=== PATIENT | female | born 1955 | race Two or more races ===

== ENCOUNTER 2025-02-11 05:45 | Inpatient (IN) | payer SELFPAY ==
[2025-02-11] VITALS (8 sets, daily range): BP systolic 106–137; BP diastolic 57–84; PULSE 62–115; RESP 13–17; TEMP 36.4–37.8; O2SAT 94–98; BMI 24.0; BMI 24.7
--- NOTE | 2025-02-11 | XR_ITS ---
MRI abdomen, without contrast. MRCP Date and time of exam: February 11 2025, 1621 hours Indications: Nausea and vomiting beginning 2 days ago, cholelithiasis, thickened gallbladder wall mildly enlarged common bile duct on gallbladder sonogram today Technique: Multiple axial and coronal images of the abdomen have been obtained with the Siemens 1.5T MRI scanner. Images obtained included T1 weighted transverse images, T2-weighted transverse images, T2-weighted transverse images fat-suppressed, T2 weighted haste fat suppressed transverse images, T1 weighted images, in and out of phase images, T2-weighted coronal images, breath hold, T2 weighted haze coronal images as well as T2 weighted coronal thick slab images, MRCP. Findings: No focal liver lesions Gallstones There is significant edema surrounding the gallbladder Common hepatic common bile duct is enlarged, 7 mm Small stones in the 2 mm range versus sludge in the common bile duct for instance coronal image 14 No splenomegaly The pancreas is not enlarged No hydronephrosis IMPRESSION: Acute calculus cholecystitis Enlarged common hepatic common bile duct with sludge versus small stones in the common bile duct, consider ERCP follow-up
--- NOTE | 2025-02-11 06:09 | EKG_ITS ---
[facility] Test Date: 2025-02-11 Pat Name: VAZQUEZ LING Department: Room: - Gender: Female [employer] Maker: : 1955 Requested By: Omkar Grewal Order Number: [id number] Reading MD: Omkar Grewal Measurements Intervals [place] Rate: 69 P: FL: QRS: 69 QRSD: 88 T: 58 QT: 397 QTc: 426 Interpretive Statements ATRIAL FIBRILLATION POSSIBLE RIGHT VENTRICULAR CONDUCTION DELAY [RSR (QR) IN V1/V2] MODERATE ST DEPRESSION [0.05+ mV ST DEPRESSION] No previous ECG available for comparison /[id number].pdf
--- NOTE | 2025-02-11 06:10 | PD.EDRME ---
Rapid Medical Screening Exam RME Arrival date/time: 02/11/25 05:45 This is a case of 69 year old female came in with abdominal pain with nausea vomiting for 2 days patient states also that her blood sugar and blood pressure is elevated. Chief Complaint: Nausea/Vomiting/Diarrhea
[2025-02-11 07:30] LABS: Base Excess, Venous 1 (-3-3); O2 Saturation, Venous 57 % (96-97); PCO2, Venous 28 mmHg (36-56); PO2, Venous 26 mmHg (15-58); pH, Venous 7.52 (7.33-7.66)
[2025-02-11 07:33] LABS: Basophils # (Auto) 0.0 Thou/mm3 (0.0-0.2); Basophils % (Auto) 0 % (0-2.5); Eosinophils # (Auto) 0.0 Thou/mm3 (0.0-0.5); Eosinophils % (Auto) 0 % (0-10); Hematocrit 40.0 % (36.0-46.0); Hemoglobin 13.7 g/dL (12.0-16.0); Immature Granulocytes Auto 0.05 Thou/mm3 (0.00-0.00); Lymphocytes # (Auto) 1.5 Thou/mm3 (1.0-4.8); Lymphocytes % (Auto) 12 % (10-50); Mean Corpuscular HGB Conc 34.3 g/dl (31.0-37.0); Mean Corpuscular Hemoglobin 27.3 pg (25.0-35.0); Mean Corpuscular Volume 80 fL (80-100); Monocytes # (Auto) 0.8 Thou/mm3 (0.0-0.8); Monocytes % (Auto) 6 % (0-12); Neutrophils # (Auto) 10.4 Thou/mm3 (1.8-7.7); Neutrophils % (Auto) 81 % (37-80); Nucleated Red Blood Cell # 0.00 Thou/mm3 (0.00-0.00); Nucleated Red Blood Cell % 0 /100 WBC (0); Platelet Count 161 Thou/mm3 (140-440); RDW Standard Deviation 39.7 fL (36.4-46.3); Red Blood Count 5.02 Miln/mm3 (4.00-5.20); White Blood Count 12.8 Thou/mm3 (3.6-11.0)
[2025-02-11 07:36] LABS: Beta Hydroxybutyrate 0.1 mmol/L (<0.6)
--- NOTE | 2025-02-11 07:49 | EDNOTE_ITS ---
ED Abdominal Pain RME/HPI General Chief Complaint: Nausea/Vomiting/Diarrhea Stated complaint: NAUSEA VOMITING DIARREHA BACK PAIN Time seen by provider: 02/11/25 07:41 Arrival date/time: 02/11/25 05:45 Limitations: no limitations RME / HPI RME / HPI narrative: 02/11/25 05:45 This is a case of 69 year old female came in with abdominal pain with nausea vomiting for 2 days patient states also that her blood sugar and blood pressure is elevated. DR. HOUSER MAIN ED EVALUATION: 69 year old female with history of hypertension and diabetes presents to the ED for evaluation of abdominal pain beginning yesterday. Described as aching in sensation that is located most to the epigastric and right upper quadrant regions that radiates around to her back. Rating 9/10 in severity. Accompanied by nausea, vomiting, and soft stools. She describes her emesis to be green in color and occurring a total of 10 times since onset. Denies fevers, chills, chest pain, cough, watery stools, or urinary symptoms. Related Data Home Medications ?Medication ?Instructions ?Recorded ?Confirmed losartan 25 mg tablet 25 mg PO QDAY 02/11/2502/11 metformin 500 mg tablet 500 mg PO QDAY 02/11/2503/31 Previous Rx's ?Medication ?Instructions ?Recorded ciprofloxacin HCl 500 mg tablet 500 mg PO BID #14 tabs 02/14/25 (Cipro) hydrocodone 5 mg-acetaminophen 325 1 tab PO Q6HR PRN PAIN 4-6 #10 02/14/25 mg tablet tabs pantoprazole 40 mg tablet,delayed 40 mg PO BID 90 days #180 tabs 02/14/25 release (Protonix) Allergies Allergy/AdvReac Type Severity Reaction Status Date / Time metronidazole Allergy Mild Rash Verified 02/12/25 07:17 aspirin (From [facility]) Allergy Verified 02/11/25 05:52 citric acid (From Allergy Verified 02/11/25 05:52 [facility]) Penicillins Allergy Verified 02/11/25 05:52 sodium bicarbonate (From Allergy Verified 02/11/25 05:52 [facility]) Review of Systems Review of Systems Systems Reviewed: All systems reviewed, normal except as documented Past Medical History Social History SMOKING STATUS: Never smoker ED Exam General Limitations: Present no limitations General appearance: Present alert and in no apparent distress Head Head exam: Present atraumatic, normocephalic and normal inspection Eye Eye exam: Present normal appearance, PERRL and EOMI ENT ENT exam: Present normal exam, normal oropharynx and mucous membranes moist Neck Neck exam: Present normal inspection, full ROM and trachea midline Chest Chest inspection: Present normal inspection and symmetric chest wall rise Respiratory Respiratory exam: Present normal lung sounds bilaterally Cardiovascular Cardiovascular exam: Present regular rate, normal rhythm and normal heart sounds Abdominal Exam Abdominal exam: Present soft and normal bowel sounds; Absent distention, te nderness, guarding or rebound Extremities Exam Extremities exam: Present normal inspection and full ROM Back Exam Back exam: Present normal inspection and full ROM Neurological Exam Neurological exam: Present alert, oriented X3 and CN II-XII intact Psychiatric Psychiatric exam: Present normal affect and normal mood Skin Skin exam: Present warm, dry, intact and normal color Course Quality Measures none Orders Category Date Time Status COVID-19 Screening Questionnaire NOW Care 02/11/25 19:12 Completed Decision to Admit X1 Care 02/11/25 19:12 Completed EKG (ED ONLY) *Do not use* NOW Care 02/11/25 06:10 Completed MRI Screening NOW Care 02/11/25 13:03 Completed NPO NOW Care 02/11/25 18:02 Completed NPO after Midnight ONCE Care 02/11/25 19:12 Completed Consult to Gastroenterology Stat Cons 02/11/25 18:33 Ordered Diet NPO after Midnight Diet 02/12/25 00:[address] abdomen pelvis wo con Stat Exams 02/11/25 08:05 Completed EKG (ED Only) Stat Exams 02/11/25 06:09 Draft MR MRCP Stat Exams 02/11/25 Completed US gall bladder Stat Exams 02/11/25 09:55 Completed Beta Hydroxybutyrate Stat Lab 02/11/25 07:19 Completed Blood Culture (Lab) Stat Lab 02/11/25 13:24 Results CBC Stat Lab 02/11/25 07:19 Completed Comprehensive Metabolic Panel Stat Lab 02/11/25 07:19 Completed Lipase Stat Lab 02/11/25 07:19 Completed Troponin I Stat Lab 02/11/25 07:19 Completed Urinalysis Stat Lab 02/11/25 09:06 Completed Venous Blood Gas Stat Lab 02/11/25 07:19 Completed Famotidine Inj [Pepcid Inj] Med 02/11/25 08:05 Discontinued 20 mg IVP X1 ONE Levofloxacin/D5w 500 mg Ivpb [Levaquin Ivpb] Med 02/11/25 13:04 Discontinued 500 mg in 100 ml IV X1 Mannitol Inj 25% Med 02/11/25 18:01 Discontinued 50 gm IV X1 ONE Morphine Inj Med 02/11/25 08:04 Discontinued 2 mg IVP X1 ONE Morphine Inj Med 02/11/25 12:59 Discontinued 4 mg IVP X1 ONE Nicardipine/Ns 20Mg Ivpb [Cardene Ivpb] Med 02/11/25 18:01 Discontinued 20 mg in 200 ml IV 5 mg/hr Ondansetron Inj [Zofran Inj] Med 02/11/25 19:30 Discontinued 4 mg .ROUTE .STK-MED ONE Ondansetron Inj [Zofran Inj] Med 02/11/25 12:59 Discontinued 4 mg IVP X1 ONE Ondansetron Inj [Zofran Inj] Med 02/11/25 19:38 Discontinued 4 mg IVP X1 ONE Ondansetron Odt [Zofran Odt] Med 02/11/25 06:39 Discontinued 4 mg PO X1 ONE Potassium Chloride [K-Dur] Med 02/11/25 09:03 Discontinued 20 meq PO X1 ONE Sodium Chloride 0.9% 1000 ml [Ns] 1,000 ml Med 02/11/25 08:04 Discontinued IV 999 mls/hr Vital Signs Vital signs: Vital Signs Temperature 98.5 F 02/11/25 07:15 Pulse Rate 115 H 02/11/25 07:15 Respiratory Rate 17 02/11/25 07:15 Blood Pressure 112/72 02/11/25 07:15 Pulse Oximetry (%) 97 02/11/25 07:15 Oxygen Delivery Method Room Air 02/11/25 07:15 Pulse ox is 97% on room air which is adequate. Abdominal Pain MDM MDM Narrative MDM Narrative:: Wilda Edwards am scribing for and in the presence of Dr. Houser. 1800: Patient signed out to Dr. Whitley pending MRCP and final disposition. Patient data External records reviewed:: None (No previous ED visits for review ) Clinical information provided by:: patient Social determinants that could affect healthcare access:: none Patient has the following chronic illnesses:: HTN and DM How is presenting disease/condition affected by chronic disease/condition?: uneffected by Evaluation data The following diagnostics were reviewed and interpreted by me:: lab results, radiology exam(s) and EKG tracing(s) (02/11/2025 @ 06:34 AM. Atrial fibrillation, rate 69, nonspecific ST and T-wave changes. ) Lab and/or radiology exams considered but not ordered:: None Interpretation Summary: Ordering Physician: Sang Houser MD Date of Service: 02/11/25 Procedure(s): CT abdomen pelvis wo con Accession Number(s): [id number] cc: Sang Houser MD; Yan Bynum MD; NO PRIMARY/FAMILY,PHYSICIAN~ Examination: CT abdomen and pelvis without contrast. Coronal 3-D reconstructions. Sagittal 2-D reconstructions. Date and time of exam:February 11, 2025 0821 hours INDICATIONS: Generalized abdominal pain with nausea vomiting diarrhea today CTDI: vol (mGy): 5.47 DLP: (mGycm): 272 Technique: Axial images of the abdomen have been obtained, 3 mm slice thickness Intravenous contrast material has not been administered. Low dose protocols were performed. One or more of the following dose reduction techniques were used; automated exposure control, adjustment of the mA and/or KV according to patient size, use of iterative reconstruction technique. Findings: Fatty infiltration throughout the liver. No focal liver or splenic lesions. Gallbladder is abnormal, wall thickening and pericholecystic inflammatory change No pancreatic mass No renal or ureteral calculi, no hydronephrosis Aorta normal size. No bowel obstruction Normal appendix No diverticulitis Abnormal thickening of urinary bladder wall up to 4 mm Absent uterus Severe osteopenia IMPRESSION: Recommend hepatobiliary sonography follow-up to confirm acute acalculous cholecystitis Urinary bladder wall thickening, differential would include cystitis Dictated By: Yan Bynum MD Signed By: <Electronically signed by Yan Bynum MD in OV> 02/11/25 09 Ordering Physician: Sang Houser MD Date of Service: 02/11/25 Procedure(s): US gall bladder Accession Number(s): [id number] cc: Sang Houser MD; Yan Bynum MD; NO PRIMARY/FAMILY,PHYSICIAN~ Examination: Abdomen sonogram, Limited Date and time of exam: February 11, 2025 1137 hours INDICATIONS: Abdominal and back pain nausea vomiting diarrhea beginning 2 days ago Technique: Real-time calderon scale transabdominal sonographic images of the upper abdomen obtained. Findings: Small gallstones Gallbladder wall is thickened 0.8 cm and there does appear to be trace edema Common bile duct 0.6 cm Pancreatic head 3.0 cm Liver 14.5 cm smooth contour Normal hepatopedal portal venous flow Patent IVC IMPRESSION: Findings most consistent with acute calculus cholecystitis, consider MRCP follow-up Dictated By: Yan Bynum MD Signed By: <Electronically signed by Yan Bynum MD in OV> 02/11/25 1201 Medications / Prescriptions Medications or Prescriptions considered but not ordered:: None Medication administrations:: Medication Administration History Acetaminophen (Acetaminophen 325 Mg Tablet) 650 mg PO Q6H PRN PRN Reason: Pain 1-3 and/or Fever >100.1 Stop: 03/13/25 19:45 Hydrocodone Bitart/Acetaminophen (Hydrocodone/Apap 5/325 Tablet) 1 tab PO Q6HR PRN PRN Reason: PAIN 4-6 Stop: 02/18/25 15:01 Last Admin: 02/14/25 06:06 Dose: 1 tab Documented By: JASON Albuterol/Ipratropium (Albuterol/Ipratropium (Duoneb) Rt Vi 3 Ml Nebu) 3 ml INH Q4HRRT PRN PRN Reason: WHEEZING Stop: 03/15/25 12:01 Dextrose (Dextrose 50%-Water Inj 50 Ml Syringe) 25 ml IV Q15MIN PRN PRN Reason: BG 50-70 responsive npo pt Stop: 03/13/25 19:53 Dextrose (Dextrose 50%-Water Inj 50 Ml Syringe) 50 ml IV Q15MIN PRN PRN Reason: BG <50 OR BG <70 & pt unresponsive Stop: 03/13/25 19:53 Docusate Sodium (Docusate Sod 100 Mg Capsule) 100 mg PO BID NADIYA; Protocol Stop: 03/15/25 20:59 Last Admin: 02/14/25 09:52 Dose: 100 mg Documented By: Admin: 02/14/25 07:28 Dose: Not Given Documented By: Non-Admin Reason: Patient Refused Admin: 02/13/25 21:56 Dose: 100 mg Documented By: JASON Glucagon (Glucagon Inj 1 Mg Vial) 1 mg IM Q15MIN PRN PRN Reason: BG <70, and no IV access Piperacillin/Tazobactam/Dextrose (Zosyn) 3.375 gm in 50 mls @ 12.5 mls/hr IV Q8HR NADIYA Stop: 02/19/25 21:59 Last Admin: 02/15/25 06:26 Dose: 12.5 mls/hr Documented By: Infusion: 02/15/25 03:47 Dose: Infused Documented By: Admin: 02/14/25 23:47 Dose: 12.5 mls/hr Documented By: Infusion: 02/14/25 17:07 Dose: Infused Documented By: Admin: 02/14/25 13:07 Dose: 12.5 mls/hr Documented By: Infusion: 02/14/25 09:21 Dose: Infused Documented By: Admin: 02/14/25 05:21 Dose: 12.5 mls/hr Documented By: Infusion: 02/14/25 01:57 Dose: Infused Documented By: Admin: 02/13/25 21:57 Dose: 12.5 mls/hr Documented By: Infusion: 02/13/25 19:11 Dose: Infused Documented By: Admin: 02/13/25 15:11 Dose: 12.5 mls/hr Documented By: Infusion: 02/13/25 09:37 Dose: Infused Documented By: Admin: 02/13/25 05:37 Dose: 12.5 mls/hr Documented By: Infusion: 02/13/25 04:02 Dose: Infused Documented By: Admin: 02/13/25 00:02 Dose: 12.5 mls/hr Documented By: LYNN Lactated Ringer's (Lactated Ringers) 1,000 mls @ 75 mls/hr IV .[id number] [facility] Stop: 03/15/25 10:42 Last Admin: 02/14/25 23:48 Dose: 75 mls/hr Documented By: Infusion: 02/14/25 18:41 Dose: Infused Documented By: Admin: 02/14/25 05:21 Dose: 75 mls/hr Documented By: Infusion: 02/14/25 04:30 Dose: Infused Documented By: Admin: 02/13/25 15:10 Dose: 75 mls/hr Documented By: JCARLOS Insulin Human Lispro (Insulin Lispro (Admelog) 1 Unit/0.01 Ml Unit) 0 unit SC [facility]; Protocol Stop: 03/15/25 16:59 Last Admin: 02/14/25 20:20 Dose: Not Given Documented By: FINESSE Non-Admin Reason: Per Protocol Admin: 02/14/25 11:42 Dose: Not Given Documented By: Non-Admin Reason: Per Protocol Admin: 02/14/25 07:25 Dose: Not Given Documented By: Non-Admin Reason: Per Protocol Admin: 02/13/25 21:57 Dose: 1 unit Documented By: JASON Co-signed By: SHANON Admin: 02/13/25 17:04 Dose: Not Given Documented By: [email or web address] Non-Admin Reason: Per Protocol Morphine Sulfate (Morphine Sulf Inj 10 Mg/Ml Vial) 2 mg IVP Q4H PRN PRN Reason: PAIN SCALE 7-10 (Severe Stop: 02/16/25 19:45 Ondansetron HCl (Ondansetron Inj 2 Mg/Ml Inj 2 Ml) 4 mg IVP Q6H PRN; Protocol PRN Reason: NAUSEA OR VOMITING Stop: 03/13/25 19:45 Last Admin: 02/12/25 20:30 Dose: 4 mg Documented By: LYNN Pantoprazole Sodium (Pantoprazole Inj 40 Mg Vial) 40 mg IVP BID [facility] Stop: 03/15/25 08:59 Last Admin: 02/14/25 23:48 Dose: 40 mg Documented By: Admin: 02/14/25 09:48 Dose: 40 mg Documented By: Admin: 02/13/25 21:57 Dose: 40 mg Documented By: Admin: 02/13/25 09:24 Dose: 40 mg Documented By: JARON Discontinued Medications Hydrocodone Bitart/Acetaminophen (Hydrocodone/Apap 10/325 Tab) 1 tab PO Q4H PRN PRN Reason: PAIN SCALE 4-6 (Moderate Stop: 02/16/25 19:45 Bisacodyl (Bisacodyl 5 Mg Tabec) 10 mg PO X1 ONE; Protocol Stop: 02/14/25 08:03 Last Admin: 02/14/25 09:08 Dose: Not Given Documented By: Non-Admin Reason: Patient Refused Bisacodyl (Bisacodyl 10 Mg Supp) 10 mg ME X1 ONE; Protocol Stop: 02/14/25 09:16 Last Admin: 02/14/25 09:55 Dose: Not Given Documented By: Non-Admin Reason: pt refused per pt had large diarrhea bm am Bupivacaine HCl (Bupivacaine Mpf 0.5% 30 Ml Vial) Confirm Administered Dose 30 ml .ROUTE .STK-MED ONE Stop: 02/13/25 12:28 Cefoxitin Sodium (Cefoxitin Sod Inj 1 Gm Vial) Confirm Administered Dose 1 gm .ROUTE .STK-MED ONE Stop: 02/13/25 12:44 Cefoxitin Sodium (Cefoxitin Sod Inj 1 Gm Vial) Confirm Administered Dose 1 gm .ROUTE .STK-MED ONE Stop: 02/13/25 12:44 Dexamethasone Sodium Phosphate (Dexamethasone Sod Phos Inj 10 Mg/Ml Vial) Confirm Administered Dose 10 mg .ROUTE .STK-MED ONE Stop: 02/12/25 17:43 Dexamethasone Sodium Phosphate (Dexamethasone Sod Phos Inj 10 Mg/Ml Vial) Confirm Administered Dose 10 mg .ROUTE .STK-MED ONE Stop: 02/13/25 12:51 Diphenhydramine HCl (Diphenhydramine Inj 50 Mg/Ml Vial) 12.5 mg IVP X1 ONE Stop: 02/12/25 11:06 Last Admin: 02/12/25 11:38 Dose: 12.5 mg Documented By: JARON Ephedrine Sulfate (Ephedrine Sulf Inj 50 Mg/Ml Vial) Confirm Administered Dose 50 mg .ROUTE .ST-MED ONE Stop: 02/13/25 13:18 Epinephrine HCl (Epinephrine Inj 1 Mg/Ml Amp) Confirm Administered Dose 1 mg .ROUTE .STK-MED ONE Stop: 02/13/25 12:51 Esmolol HCl (Esmolol Inj 10 Mg/Ml Vial 10 Ml) Confirm Administered Dose 100 mg .ROUTE .STK-MED ONE Stop: 02/12/25 18:48 Esmolol HCl (Esmolol Inj 10 Mg/Ml Vial 10 Ml) Confirm Administered Dose 100 mg .ROUTE .ST-MED ONE Stop: 02/13/25 13:01 Famotidine (Famotidine Inj 10 Mg/Ml Vial 2 Ml) 20 mg IVP X1 ONE Stop: 02/11/25 08:06 Last Admin: 02/11/25 08:33 Dose: 20 mg Documented By: MIGUEL Fentanyl Citrate (Fentanyl Cit Inj 50 Mcg/Ml Amp 2ml) Confirm Administered Dose 100 mcg .ROUTE .[facility]-MED ONE Stop: 02/12/25 18:17 Fentanyl Citrate (Fentanyl Cit Inj 50 Mcg/Ml Amp 2ml) 25 mcg IVP Q5MIN PRN PRN Reason: PAIN SCALE 4-10(Mod-Sev Stop: 02/12/25 20:58 Fentanyl Citrate (Fentanyl Cit Inj 50 Mcg/Ml Amp 2ml) 25 mcg IVP Q5M PRN PRN Reason: PAIN SCALE 1-3 (mild Stop: 02/13/25 14:02 Last Admin: 02/13/25 14:36 Dose: 25 mcg Documented By: PATTI Fentanyl Citrate (Fentanyl Cit Inj 50 Mcg/Ml Amp 2ml) 50 mcg IVP Q5M PRN PRN Reason: PAIN SCALE 4-6 (Moderate Stop: 02/13/25 14:02 Fentanyl Citrate (Fentanyl Cit Inj 50 Mcg/Ml Amp 2ml) Confirm Administered Dose 100 mcg .ROUTE .STK-MED ONE Stop: 02/13/25 12:27 Heparin Sodium (Porcine) (Heparin Sod Inj 5000 Unit/Ml Vial) 5,000 unit SC Q12HR NADIYA Stop: 02/25/25 20:59 Last Admin: 02/13/25 09:21 Dose: Not Given Documented By: JARON Non-Admin Reason: Held for Procedure Admin: 02/12/25 20:31 Dose: 5,000 unit Documented By: LYNN Co-signed By: JASON Admin: 02/12/25 09:32 Dose: Not Given Documented By: [email or web address] Non-Admin Reason: Held for Procedure Admin: 02/11/25 21:29 Dose: 5,000 unit Documented By: MANUEL Co-signed By: RADU Hydralazine HCl (Hydralazine Inj 20 Mg/Ml Vial) 5 mg IV Q20MIN PRN PRN Reason: SEE COMMENTS Stop: 02/12/25 20:58 Hydromorphone HCl (Hydromorphone Inj 2 Mg/Ml Vial) 0.5 mg IVP Q5M PRN PRN Reason: PAIN SCALE 7-10 (Severe Stop: 02/13/25 14:02 Sodium Chloride (Ns) 1,000 mls @ 999 mls/hr IV .Q1H1M ONE Stop: 02/11/25 09:04 Last Infusion: 02/11/25 09:53 Dose: Infused Documented By: Admin: 02/11/25 08:31 Dose: 999 mls/hr Documented By: MIGUEL Levofloxacin/Dextrose (Levaquin Ivpb) 500 mg in 100 mls @ 100 mls/hr IV X1 ONE Stop: 02/11/25 14:03 Last Infusion: 02/11/25 15:53 Dose: Infused Documented By: Admin: 02/11/25 14:35 Dose: 100 mls/hr Documented By: MIGUEL Nicardipine/Sodium Chloride (Cardene Ivpb) 20 mg in 200 mls @ 50 mls/hr IV .Q4H PRN; Protocol PRN Reason: PER PROTOCOL Stop: 03/13/25 18:00 Sodium Chloride (Ns) 1,000 mls @ 75 mls/hr IV .[id number] NADIYA Stop: 02/12/25 09:19 Last Admin: 02/11/25 20:06 Dose: 75 mls/hr Documented By: RANI Metronidazole (Flagyl 500 Mg Iv) 500 mg in 100 mls @ 200 mls/hr IV Q8HR NADIYA Stop: 02/18/25 20:05 Last Admin: 02/12/25 05:34 Dose: 200 mls/hr Documented By: Infusion: 02/11/25 21:59 Dose: Infused Documented By: Admin: 02/11/25 21:29 Dose: 200 mls/hr Documented By: MANUEL Ceftriaxone Sodium 2 gm/ (Sodium Chloride) 50 mls @ 100 mls/hr IV QDAY NADIYA Stop: 02/18/25 20:05 Last Admin: 02/12/25 09:33 Dose: 100 mls/hr Documented By: Infusion: 02/11/25 20:49 Dose: Infused Documented By: Admin: 02/11/25 20:16 Dose: 100 mls/hr Documented By: RANI Lactated Ringer's (Lactated Ringers) 1,000 mls @ 250 mls/hr IV .Q4H NADIYA Stop: 03/14/25 11:02 Last Admin: 02/13/25 09:20 Dose: 250 mls/hr Documented By: Infusion: 02/13/25 08:45 Dose: Infused Documented By: Admin: 02/13/25 04:45 Dose: 250 mls/hr Documented By: Infusion: 02/13/25 04:37 Dose: Infused Documented By: Admin: 02/13/25 00:39 Dose: Not Given Documented By: AAA Non-Admin Reason: NEW BAG JUST SPIKED Admin: 02/13/25 00:37 Dose: 250 mls/hr Documented By: Infusion: 02/13/25 00:35 Dose: Infused Documented By: Admin: 02/12/25 20:35 Dose: 250 mls/hr Documented By: Infusion: 02/12/25 15:39 Dose: Infused Documented By: Admin: 02/12/25 11:39 Dose: 250 mls/hr Documented By: JARON Piperacillin/Tazobactam/Dextrose (Zosyn) 3.375 gm in 50 mls @ 100 mls/hr IV X1 ONE Stop: 02/12/25 11:44 Last Admin: 02/12/25 11:38 Dose: 100 mls/hr Documented By: JARON Piperacillin/Tazobactam/Dextrose (Zosyn) Confirm Administered Dose 3.375 gm in 50 mls @ ud IV .STK-MED ONE Stop: 02/12/25 18:10 Last Admin: 02/12/25 20:18 Dose: Not Given Documented By: AAA Non-Admin Reason: Duplicate Medication on eMAR Piperacillin/Tazobactam/Dextrose (Zosyn) 3.375 gm in 50 mls @ 100 mls/hr IV X1 ONE Stop: 02/12/25 19:10 Last Infusion: 02/12/25 19:25 Dose: Infused Documented By: Admin: 02/12/25 18:32 Dose: 100 mls/hr Documented By: DB Lactated Ringer's (Lactated Ringers) 1,000 mls @ 999 mls/hr IV .Q1H1M ONE Stop: 02/12/25 19:41 Last Infusion: 02/12/25 19:26 Dose: 999 mls/hr Documented By: Admin: 02/12/25 18:29 Dose: 999 mls/hr Documented By: DB Lactated Ringer's (Lactated Ringers) 1,000 mls @ 999 mls/hr IV .Q1H1M ONE Stop: 02/12/25 20:18 Last Admin: 02/12/25 19:37 Dose: 999 mls/hr Documented By: VIRY Potassium Phosphate 22.5 mmol/ (Sodium Chloride) 507.5 mls @ 82.778 mls/hr IV X1 ONE Stop: 02/13/25 16:47 Last Admin: 02/13/25 15:19 Dose: 82.778 mls/hr Documented By: [facility] Acetaminophen (Ofirmev Inj) Confirm Administered Dose 100 mls @ ud IV .STK-MED ONE Stop: 02/13/25 12:40 Magnesium Sulfate (Magnesium Sulfate Ivpb) 4 gm in 50 mls @ 12.5 mls/hr IV X1 ONE Stop: 02/14/25 13:53 Last Admin: 02/14/25 11:43 Dose: 12.5 mls/hr Documented By: Indomethacin (Indomethacin 50 Mg Supp) 100 mg ME X1 ONE Stop: 02/12/25 16:50 Last Admin: 02/12/25 18:58 Dose: 100 mg Documented By: ARNOLDO Insulin Human Lispro (Insulin Lispro (Admelog) 1 Unit/0.01 Ml Unit) 0 unit SC Q6HR [facility]; Protocol Stop: 03/14/25 00:00 Last Admin: 02/12/25 05:44 Dose: Not Given Documented By: MANUEL Non-Admin Reason: Per Protocol Admin: 02/12/25 00:25 Dose: Not Given Documented By: MANUEL Non-Admin Reason: Per Protocol Insulin Human Lispro (Insulin Lispro (Admelog) 1 Unit/0.01 Ml Unit) 0 unit SC [facility] NADIYA; Protocol Stop: 03/14/25 11:29 Insulin Human Lispro (Insulin Lispro (Admelog) 1 Unit/0.01 Ml Unit) 0 unit SC Q 6HR NADIYA; Protocol Stop: 03/14/25 11:59 Last Admin: 02/13/25 12:08 Dose: Not Given Documented By: JARON Non-Admin Reason: Per Protocol Admin: 02/13/25 05:38 Dose: 1 unit Documented By: LYNN Co-signed By: JASON Admin: 02/13/25 00:14 Dose: 3 unit Documented By: LYNN Co-signed By: JASON Admin: 02/12/25 19:11 Dose: Not Given Documented By: JCARLOS Non-Admin Reason: pt in [place] Admin: 02/12/25 11:28 Dose: Not Given Documented By: JARON Non-Admin Reason: Per Protocol Labetalol HCl (Labetalol Inj 5 Mg/Ml Vial 20 Ml) 5 mg IVP Q10MIN PRN PRN Reason: Blood Pressure - High Stop: 03/15/25 12:01 Lidocaine HCl (Lidocaine Inj Pf 1% 2 Ml Vial) Confirm Administered Dose 2 ml .ROUTE .STK-MED ONE Stop: 02/12/25 18:26 Lidocaine HCl (Lidocaine Inj Pf 2% 5 Ml Vial) Confirm Administered Dose 5 ml .ROUTE .STK-MED ONE Stop: 02/13/25 12:40 Mannitol (Mannitol Inj 25% 12.5 Gm/50 Ml Vial) 50 gm IV X1 ONE Stop: 02/11/25 18:02 Last Admin: 02/11/25 18:21 Dose: Not Given Documented By: [facility] Non-Admin Reason: Wrong Patient Metoprolol Tartrate (Metoprolol Tartrate Inj 1 Mg/Ml Amp 5 Ml) 1 mg IVP Q5MIN PRN PRN Reason: TACHYCARDIA Stop: 02/12/25 20:59 Midazolam HCl (Midazolam Inj 1 Mg/Ml Vial 2 Ml) 1 mg IVP Q5MIN PRN PRN Reason: ANXIETY Stop: 02/12/25 20:58 Morphine Sulfate (Morphine Sulf Inj 10 Mg/Ml Vial) 2 mg IVP X1 ONE Stop: 02/11/25 08:05 Last Admin: 02/11/25 08:34 Dose: 2 mg Documented By: MIGUEL Morphine Sulfate (Morphine Sulf Inj 10 Mg/Ml Vial) 4 mg IVP X1 ONE Stop: 02/11/25 13:00 Last Admin: 02/11/25 14:12 Dose: 4 mg Documented By: MIGUEL Ondansetron HCl (Ondansetron Odt 4 Mg Tabrap) 4 mg PO X1 ONE; Protocol Stop: 02/11/25 06:40 Last Admin: 02/11/25 07:54 Dose: 4 mg Documented By: MIGUEL Ondansetron HCl (Ondansetron Inj 2 Mg/Ml Inj 2 Ml) 4 mg IVP X1 ONE; Protocol Stop: 02/11/25 13:00 Last Admin: 02/11/25 14:12 Dose: 4 mg Documented By: MIGUEL Ondansetron HCl (Ondansetron Inj 2 Mg/Ml Inj 2 Ml) 4 mg IVP X1 ONE; Protocol Stop: 02/11/25 19:39 Last Admin: 02/11/25 19:44 Dose: 4 mg Documented By: RANI Comments: MED WAS SCANNED, EXITED OUT OF CHART AND VIAL DOISCARED PRIOR TO RESCAN Ondansetron HCl (Ondansetron Inj 2 Mg/Ml Inj 2 Ml) Confirm Administered Dose 4 mg .ROUTE .STK-MED ONE Stop: 02/11/25 19:31 Last Admin: 02/11/25 19:41 Dose: Not Given Documented By: RANI Non-Admin Reason: Discontinued Ondansetron HCl (Ondansetron Inj 2 Mg/Ml Inj 2 Ml) 4 mg IVP Q4H PRN PRN Reason: NAUSEA Stop: 03/15/25 12:01 Last Admin: 02/13/25 14:34 Dose: 4 mg Documented By: PATTI Ondansetron HCl (Ondansetron Inj 2 Mg/Ml Inj 2 Ml) Confirm Administered Dose 4 mg .ROUTE .STK-MED ONE Stop: 02/13/25 12:51 Pantoprazole Sodium (Pantoprazole Inj 40 Mg Vial) 80 mg IVP X1 STA Stop: 02/12/25 19:11 Last Admin: 02/12/25 19:39 Dose: 80 mg Documented By: VIRY Potassium Chloride (Potassium Chloride 20 Meq Tabcr) 20 meq PO X1 ONE Stop: 02/11/25 09:04 Last Admin: 02/11/25 11:35 Dose: 20 meq Documented By: RD Potassium Chloride (Potassium Chloride 20 Meq Tabcr) 20 meq PO X1 ONE Stop: 02/11/25 20:08 Last Admin: 02/11/25 20:16 Dose: 20 meq Documented By: DT Propofol (Propofol Inj 10 Mg/Ml Vial 20 Ml) Confirm Administered Dose 200 mg IV .STK-MED ONE Stop: 02/12/25 17:43 Propofol (Propofol Inj 10 Mg/Ml Vial 20 Ml) Confirm Administered Dose 200 mg IV .STK-MED ONE Stop: 02/13/25 12:27 Rocuronium [place] (Rocuronium Inj 10 Mg/Ml Vial 10 Ml) Confirm Administered Dose 100 mg .ROUTE .STK-MED ONE Stop: 02/13/25 12:28 Sugammadex Sodium (Sugammadex Inj 100 Mg/Ml 2ml Vial) Confirm Administered Dose 200 mg .ROUTE .STK-MED ONE Stop: 02/13/25 13:05 See above Consultations Consultation(s) initiated? (list below): No Diagnosis Differential diagnosis abdominal pain: abdominal pain, calculus of kidney, gastroenteritis and other (gastritis, cholelithiasis, cholecystitis ) Most likely diagnosis given after review of the tests above:: Abdominal pain Admission Indicated Admission indicated?: not indicated Explain why admission is indicated or not indicated:: Signed out pending final disposition. Admission Request Was there a request for admission?: No Disposition Plan Disposition Plan: other (specify) (Patient signed out to Dr. Whitley pending [facility]. ) Discharge Plan Plan Patient Disposition: Admit Acute Care w/in Hospital Problem List Clinical Impression: Choledocholithiasis with acute cholecystitis
[2025-02-11 07:53] LABS: Alanine Aminotransferase 19 U/L (10-49); Albumin, Serum 4.8 gm/dL (3.4-4.8); Albumin/Globulin Ratio 1.7 (1.2-2.2); Alkaline Phosphatase 82 U/L (46-116); Anion Gap 14 (7-16); Aspartate Amino Transferase 21 U/L (0-34); BUN/Creatinine Ratio 10 Ratio (12-20); Bilirubin,Total 1.0 mg/dL (0.3-1.2); Blood Urea Nitrogen 8 mg/dL (9-23); Calcium 9.8 mg/dL (8.3-10.6); Calcium (Corrected) 9.8 mg/dL (8.5-10.1); Carbon Dioxide 23.6 mMol/L (20.0-31.0); Chloride 99 mMol/L (98-107); Creatinine (Component) 0.8 mg/dL (0.6-1.3); Globulin 2.8 gm/dL (2.3-3.5); Glucose 180 mg/dL (74-106); Lipase 32 U/L (12-53); Osmolality,Calculated 277 (275-295); Potassium 3.3 mMol/L (3.4-5.1); Sodium 137 mMol/L (136-145); Total Protein 7.6 gm/dL (5.7-8.2); Troponin I < 0.020 ng/mL (0.0-0.045); eGFR > 60 See Note
[2025-02-11] MEDS: ONDANSETRON ODT 4 MG TABRAP PO (07:54)
--- NOTE | 2025-02-11 08:05 | XR_ITS ---
Examination: CT abdomen and pelvis without contrast. Coronal 3-D reconstructions. Sagittal 2-D reconstructions. Date and time of exam:February 11, 2025 0821 hours INDICATIONS: Generalized abdominal pain with nausea vomiting diarrhea today CTDI: vol (mGy): 5.47 DLP: (mGycm): 272 Technique: Axial images of the abdomen have been obtained, 3 mm slice thickness Intravenous contrast material has not been administered. Low dose protocols were performed. One or more of the following dose reduction techniques were used; automated exposure control, adjustment of the mA and/or KV according to patient size, use of iterative reconstruction technique. Findings: Fatty infiltration throughout the liver. No focal liver or splenic lesions. Gallbladder is abnormal, wall thickening and pericholecystic inflammatory change No pancreatic mass No renal or ureteral calculi, no hydronephrosis Aorta normal size. No bowel obstruction Normal appendix No diverticulitis Abnormal thickening of urinary bladder wall up to 4 mm Absent uterus Severe osteopenia IMPRESSION: Recommend hepatobiliary sonography follow-up to confirm acute acalculous cholecystitis Urinary bladder wall thickening, differential would include cystitis
--- NOTE | 2025-02-11 08:17 | PC.NURSE ---
Patient taken to CT via gurney.
[2025-02-11] MEDS: SODIUM CHLORIDE 0.9% 1000 ML 1,000 ML 999 ML IV (08:31)
[2025-02-11] MEDS: FAMOTIDINE INJ 10 MG/ML VIAL 2 ML 20 MG IVP (08:33)
[2025-02-11] MEDS: MORPHINE SULF INJ 10 MG/ML VIAL 2 MG IVP (08:34)
[2025-02-11 09:22] LABS: Collection Type, Urine Clean Catch
[2025-02-11 09:36] LABS: Bilirubin,Urine Negative (Negative); Blood,Urine Trace (Negative); Clarity,Urine Clear (Clear/Hazy); Color,Urine Lt-Yellow (Lt Yel-Yel); Glucose, Urine Negative (Negative); Ketones,Urine 1+ (Negative); Leukocyte Esterase,Urine Positive (Negative); Nitrite,Urine Negative (Negative); PH,Urine 8.5 (5.0-7.0); Protein,Urine Negative (Neg - Trace); RBC,Urine 8 /hpf (0-3); Specific Gravity,Urine 1.015 (1.001-1.035); Squamous Epithelial Cell,Urine 1 /hpf (0-5); Urobilinogen,Urine Negative mg/dL (0.0-1.0); WBC,Urine 7 /hpf (0-5)
--- NOTE | 2025-02-11 09:55 | XR_ITS ---
Examination: Abdomen sonogram, Limited Date and time of exam: February 11, 2025 1137 hours INDICATIONS: Abdominal and back pain nausea vomiting diarrhea beginning 2 days ago Technique: Real-time calderon scale transabdominal sonographic images of the upper abdomen obtained. Findings: Small gallstones Gallbladder wall is thickened 0.8 cm and there does appear to be trace edema Common bile duct 0.6 cm Pancreatic head 3.0 cm Liver 14.5 cm smooth contour Normal hepatopedal portal venous flow Patent IVC IMPRESSION: Findings most consistent with acute calculus cholecystitis, consider MRCP follow-up
[2025-02-11] MEDS: MORPHINE SULF INJ 10 MG/ML VIAL 4 MG IVP (14:12)
[2025-02-11] MEDS: ONDANSETRON INJ 2 MG/ML INJ 2 ML 4 MG IVP ×2 (14:12→19:44)
[2025-02-11] MEDS: LEVOFLOXACIN/D5W 500 MG IVPB 500 MG/100 ML BAG 100 MG IV (14:35)
--- NOTE | 2025-02-11 18:24 | PD.EDADDENDU ---
Emergency Room Addendum <Barbara Isaac - Last Filed: 02/11/25 18:33> Addendum Narrative: I took over the care from previous shift physician at 6 PM on 02/11/2025. See previous notes for complete H & P and ED course. I reviewed all diagnostic test results. My review of the MRCP report is Acute calculus cholecystitis. Enlarged common hepatic common bile duct with sludge versus small stones in the common bile duct, consider ERCP follow-up. Diagnoses include: Treatment here included 1831: I discussed the case with Dr. Potts about the presentation and exam and diagnostics and treatments here and need of further care in the hospital. Dr. Potts will evaluate patient in the morning. Alejandro Whitley MD <Alejandro Whitley MD - Last Filed: 02/11/25 19:21> Addendum Narrative: I took over the care from previous shift physician at 6 PM on 02/11/2025. See previous notes for complete H & P and ED course. I was asked to review the MRCP report. My review of the MRCP report is: Acute calculus cholecystitis. Enlarged common hepatic common bile duct with sludge versus small stones in the common bile duct, consider ERCP follow-up. Diagnoses include: Choledocholithiasis with acute cholecystitis. 1831: I discussed the case with Dr. Potts, our township supervisor.? About the presentation and exam and diagnostics and treatments here.? And need of further care in the hospital.? Recommended admission for ERCP in the morning. I discussed the case with our hospitalist.? About the presentation and exam and diagnostics and treatments here.? And need of further care in the hospital.? Will accept the patient. Alejandro Whitley MD
--- NOTE | 2025-02-11 19:55 | ESHP_ITS ---
Documentation for date of: 02/11/25 HPI History of Present Illness Chief complaint: Abdominal pain, nausea History of present illness: 69-year-old female with past medical history of ahw-[id number] type 2 diabetes, hypertension presenting to the ED on 02/11 with worsening abdominal pain. Patient states that the pain started sometime about 2 days ago and has progressively worsened and is associated with nausea and vomiting. Patient states that she has vomited about 6 times today without any noted blood in the vomit has mostly been green/bilious. Patient denies having any similar symptoms in the past and denies any other concerning symptoms such as dizziness/new headaches, chest pain, tightness, shortness of breath, diarrhea, melena, hematochezia or hematemesis. Past medical history: As stated above Surgical history: Denies Allergies: Aspirin, citric acid, penicillin and sodium bicarb Medications: Losartan 25 mg p.o. daily, metformin 500 mg p.o. daily Family history: Noncontributory Social history: Patient lives at home in [place], denies any alcohol, tobacco or illicit drug use. ROS: All 12 systems assessed and the patient denies unless otherwise stated in HPI In the ED, patient presented normotensive, tachycardic with heart rate of 115, respiratory rate 17, afebrile satting 97 on room air. Fingerstick glucose was 128, pertinent lab findings include WBC of 12.8, potassium 3.3, BUN 8, creatinine 0.8, glucose 180, T. bili 1.0, AST 21, ALT 19, troponin within normal limits, lipase 32. Urinalysis was negative for any signs of urinary tract infection. Gallbladder ultrasound is consistent with acute calculus cholecystitis, CT abdomen pelvis recommended HIDA to confirm the acute calculus cholecystitis, urinary bladder wall thickening noted. EKG read showed atrial fibrillation with possible right ventricular conduction delay but there is clear P waves noted on leads II and V1. MRCP showed acute calculus cholecystitis and an enlarged common hepatic common bile duct with sludge. Patient will be admitted for acute calculus cholecystitis, choledocholithiasis requiring ERCP with Dr. Potts which will be scheduled for 02/12. Exam Vital Signs Temp Pulse Resp BP Pulse Ox O2 Del Method 98.6 F 66 17 106/84 95 Room Air 02/11/25 19:18 02/11/25 19:18 02/11/25 19:18 02/11/25 19:18 02/11/25 19:18 02/11/25 19:18 Narrative Exam Physical Exam: GENERAL: Awake, answering questions appropriately in Georgian, appears stated age. Patient actively vomiting bilious colored vomitus HEENT: NC/AT. Moist mucosa. PERRLA/EOMI. CARDIO: Heart RRR, no obvious murmurs, no JVD. PULM: No coughing or visible SOB. Lungs CTA B/L. GI: Abdomen soft, mildly tender to palpation epigastric region, no rebound or guarding. [place] apparent. SKIN/MSK/EXT: No wounds/discoloration/rashes/edema/amputations. +Pedal pulses present B/L. NEURO: Oriented x3, Moves extremities x4, no focal neurologic deficits noted Results: Labs 02/11/25 07:19 02/11/25 07:19 Labs: Short CBC 02/11/25 Range/Units 07:19 WBC 12.8 H (3.6-11.0) Thou/mm3 Hgb 13.7 (12.0-16.0) g/dL Hct 40.0 (36.0-46.0) % Plt Count 161 (140-440) Thou/mm3 BMP 02/11/25 07:19 Sodium 137 Potassium 3.3 L Chloride 99 Carbon Dioxide 23.6 BUN 8 L Creatinine 0.8 Glucose 180 H Calcium 9.8 Cardiac Enzymes 02/11/25 Range/Units 07:19 Troponin I < 0.020 (0.0-0.045) ng/mL Liver Function 02/11/25 Range/Units 07:19 Total Bilirubin 1.0 (0.3-1.2) mg/dL AST 21 (0-34) U/L ALT 19 (10-49) U/L Alkaline Phosphatase 82 (46-116) U/L Albumin 4.8 (3.4-4.8) gm/dL Urine 02/11/25 Range/Units 09:06 Urine Color Lt-Yellow (Lt Yel-Yel) Urine Clarity Clear (Clear/Hazy) Urine pH 8.5 H (5.0-7.0) Ur Specific [place] 1.015 (1.001-1.035) Urine Protein Negative (Neg - Trace) Urine Glucose (UA) Negative (Negative) ABG Interpretation ABG results: 02/11/25 07:19 VBG pH 7.52 VBG pCO2 28 L VBG pO2 26 VBG Base Excess 1 Quality Measures Quality Measures none Advance care planning discussed with:: patient Medications Home Medications and Allergies Home Medications ?Medication ?Instructions ?Recorded ?Confirmed ?Type losartan 25 mg tablet 25 mg PO QDAY 02/11/2502/11 History metformin 500 mg tablet 500 mg PO QDAY 02/11/2503/31 History Allergies Allergy/AdvReac Type Severity Reaction Status Date / Time aspirin (From [facility]) Allergy Verified 02/11/25 05:52 citric acid (From Allergy Verified 02/11/25 05:52 [place]) Penicillins Allergy Verified 02/11/25 05:52 sodium bicarbonate (From Allergy Verified 02/11/25 05:52 [place]) Visit Medications Acetaminophen (Acetaminophen 325 Mg Tablet) 650 mg PO Q6H PRN PRN Reason: Pain 1-3 and/or Fever >100.1 Stop: 03/13/25 19:45 Hydrocodone Bitart/Acetaminophen (Hydrocodone/Apap 10/325 Tab) 1 tab PO Q4H PRN PRN Reason: PAIN SCALE 4-6 (Moderate Stop: 02/16/25 19:45 Dextrose (Dextrose 50%-Water Inj 50 Ml Syringe) 25 ml IV Q15MIN PRN PRN Reason: BG 50-70 responsive npo pt Stop: 03/13/25 19:53 Dextrose (Dextrose 50%-Water Inj 50 Ml Syringe) 50 ml IV Q15MIN PRN PRN Reason: BG <50 OR BG <70 & pt unresponsive Stop: 03/13/25 19:53 Glucagon (Glucagon Inj 1 Mg Vial) 1 mg IM Q15MIN PRN PRN Reason: BG <70, and no IV access Heparin Sodium (Porcine) (Heparin Sod Inj 5000 Unit/Ml Vial) 5,000 unit SC Q12HR NADIYA Stop: 02/25/25 20:59 Sodium Chloride (Ns) 1,000 mls @ 75 mls/hr IV .[id number] NADIYA Stop: 02/12/25 09:19 Insulin Human Lispro (Insulin Lispro (Admelog) 1 Unit/0.01 Ml Unit) 0 unit SC Q6HR NADIYA; Protocol Stop: 03/14/25 00:00 Morphine Sulfate (Morphine Sulf Inj 10 Mg/Ml Vial) 2 mg IVP Q4H PRN PRN Reason: PAIN SCALE 7-10 (Severe Stop: 02/16/25 19:45 Ondansetron HCl (Ondansetron Inj 2 Mg/Ml Inj 2 Ml) 4 mg IVP Q6H PRN; Protocol PRN Reason: NAUSEA OR VOMITING Stop: 03/13/25 19:45 Discontinued Medications Famotidine (Famotidine Inj 10 Mg/Ml Vial 2 Ml) 20 mg IVP X1 ONE Stop: 02/11/25 08:06 Last Admin: 02/11/25 08:33 Dose: 20 mg Sodium Chloride (Ns) 1,000 mls @ 999 mls/hr IV .Q1H1M ONE Stop: 02/11/25 09:04 Last Infusion: 02/11/25 09:53 Dose: Infused Levofloxacin/Dextrose (Levaquin Ivpb) 500 mg in 100 mls @ 100 mls/hr IV X1 ONE Stop: 02/11/25 14:03 Last Infusion: 02/11/25 15:53 Dose: Infused Nicardipine/Sodium Chloride (Cardene Ivpb) 20 mg in 200 mls @ 50 mls/hr IV .Q4H PRN; Protocol PRN Reason: PER PROTOCOL Stop: 03/13/25 18:00 Mannitol (Mannitol Inj 25% 12.5 Gm/50 Ml Vial) 50 gm IV X1 ONE Stop: 02/11/25 18:02 Last Admin: 02/11/25 18:21 Dose: Not Given Morphine Sulfate (Morphine Sulf Inj 10 Mg/Ml Vial) 2 mg IVP X1 ONE Stop: 02/11/25 08:05 Last Admin: 02/11/25 08:34 Dose: 2 mg Morphine Sulfate (Morphine Sulf Inj 10 Mg/Ml Vial) 4 mg IVP X1 ONE Stop: 02/11/25 13:00 Last Admin: 02/11/25 14:12 Dose: 4 mg Ondansetron HCl (Ondansetron Odt 4 Mg Tabrap) 4 mg PO X1 ONE; Protocol Stop: 02/11/25 06:40 Last Admin: 02/11/25 07:54 Dose: 4 mg Ondansetron HCl (Ondansetron Inj 2 Mg/Ml Inj 2 Ml) 4 mg IVP X1 ONE; Protocol Stop: 02/11/25 13:00 Last Admin: 02/11/25 14:12 Dose: 4 mg Ondansetron HCl (Ondansetron Inj 2 Mg/Ml Inj 2 Ml) 4 mg IVP X1 ONE; Protocol Stop: 02/11/25 19:39 Last Admin: 02/11/25 19:44 Dose: 4 mg Potassium Chloride (Potassium Chloride 20 Meq Tabcr) 20 meq PO X1 ONE Stop: 02/11/25 09:04 Last Admin: 02/11/25 11:35 Dose: 20 meq Assessment & Plan Plan 69-year-old female with past medical history of lxy-yphhrif-rmmlafmzu type 2 diabetes, hypertension presenting to the ED on 02/11 with worsening abdominal pain will be admitted for acute calculus cholecystitis, choledocholithiasis requiring ERCP with Dr. Potts which will be scheduled for 02/12. #Acute calculus cholecystitis #Choledocholithiasis As per HPI above, patient presenting with 2 days of abdominal pain associated with nausea Differentials include: Pancreatitis, PUD, cholecystitis, choledocholithiasis, gastroparesis On examination, patient in normal sinus rhythm with stable vitals, abdominal tenderness with active vomiting noted Gallbladder ultrasound is consistent with acute calculus cholecystitis, CT abdomen pelvis recommended HIDA to confirm the acute calculus cholecystitis, urinary bladder wall thickening noted. EKG read showed atrial fibrillation with possible right ventricular conduction delay but there is clear P waves noted on leads II and V1. MRCP showed acute calculus cholecystitis and an enlarged common hepatic common bile duct with sludge. In the ED, patient given analgesic medication, antinausea, IV antibiotics and Dr. Potts was consulted and agreed to ERCP Plan: Clear liquid diet, n.p.o. after midnight IV metronidazole 500 mg every 12 and IV ceftriaxone [address] Potts, gastroenterology consulted appreciate recommendations Consulted general surgery, Dr. Perez for possible need of cholecystectomy after ERCP Multimodal pain management Zofran as needed #?Cystitis Patient denies having any urinary tract infection symptoms, no dysuria increased frequency, lower back pain CT findings does show cystitis as noted above Plan: IV antibiotic to provide adequate coverage #Tum-maenewm-pqunxvliq type 2 diabetes No A1c on file, patient on metformin Plan: Follow-up with morning A1c Sliding scale insulin every 6 #Hypertension Chronic medical condition, patient on losartan 25 mg p.o. daily Plan: Restart home medication when appropriate Health Maintenance: Lines: PIV Diet: Clear liquid, n.p.o. after midnight Bowel: Not needed GI prophylaxis: Not needed for now DVT prophylaxis: Heparin subcu Dispo: Pending ERCP with Dr. Potts, IV antibiotics Code: Full Patient seen and examined with attending Dr. Tl Long DO PGY-2 Internal Medicine - GME Attending Provider Attestation/Addendum After examination of the patient and review of the clinical data I feel that this patient needs admission to the hospital for further treatment/evaluation. I have discussed and was present for the essential components of the history, physical examination, diagnosis, and treatment plan with the resident. I agree with the patient's care as documented by the resident and amended herein by me. Miki Boothe DO. Patient seen and evaluated in the ED. Patient is a 69-year-old female with a reported past medical history of type II NIDDM, and hypertension, who presented to the ED with abdominal pain, associated with nausea and vomiting for the past 2 days prior to admission. Patient described bilious vomiting with a green tinge, she denied any chest pain, fever or chills. No diarrhea was reported. Patient subsequently admitted for acute calculus cholecystitis and choledocho lithiasis with possible UTI. In the ED, vital signs stable, patient afebrile, significant labs include WBC of 12.8, potassium 3.3 UA positive for WBC of 7, positive leuk esterase. Imaging included a gallbladder ultrasound demonstrating acute calculus cholecystitis with a CBD of 0.6 cm and a thickened gallbladder wall, CTAP suggestive of acute calculus cholecystitis with urinary bladder wall thickening, again the gallbladder was noted to be abnormal with wall thickening, MRCP was also performed today demonstrating acute calculus cholecystitis and a large common hepatic common bile duct with sludge versus small stones in the CBD. Gastroenterology, Dr. Potts was consulted for ERCP tomorrow. Patient was given IV levofloxacin in the ED and a bolus of NS in the ED. Patient will be admitted to telemetry for acute calculus cholecystitis and choledocholithiasis. UA was positive suggestive of possible UTI however the patient was asymptomatic, Dr. Potts has been consulted in the ED, we will also consult general surgery for possible cholecystectomy before discharge. Patient is also been started on broad-spectrum antibiotics to include ceftriaxone 2 g daily and Flagyl 500 mg every 8 hours. Med rec is pending, will replete potassium and continue gentle IVF for now. Patient is n.p.o. for tomorrow's procedure. Although this document has been carefully reviewed, there may still be some phonetic and other typographical errors. These errors are purely grammatical due to imperfections in the software program and should not be construed in any way to compromise the substance of the patient's medical care during this visit.
[2025-02-11] MEDS: SODIUM CHLORIDE 0.9% 1000 ML 1,000 ML 75 ML IV (20:06)
[2025-02-11] MEDS: cefTRIAXone 2 GM in SODIUM CHLORIDE 0.9% (Popper) 50 ML IV (20:16)
[2025-02-11] MEDS: HEPARIN SOD INJ 5000 UNIT/ML VIAL SC (21:29)
[2025-02-11] MEDS: metroNIDAZOLE/NS 500 MG IVPB 500 MG/100 ML BAG 200 MG IV (21:29)
--- NOTE | 2025-02-11 23:53 | EKG_ITS ---
[facility] Test Date: 2025-02-12 Pat Name: VAZQUEZ LING Department: Room: S363A Gender: Female [employer] Supervisor: [id number] : [id number] Requested By: Loki Long Order Number: [id number] Reading MD: Loki Long Measurements Intervals [place] Rate: 66 P: 72 CA: 151 QRS: 69 QRSD: 102 T: 67 QT: 391 QTc: 413 Interpretive Statements SINUS RHYTHM INCOMPLETE RIGHT BUNDLE BRANCH BLOCK Compared to ECG 02/11/2025 06:34:53 Incomplete right bundle-branch block now present Atrial fibrillation no longer present ST (T wave) deviation no longer present /store/S0/[id number]/[id number].pdf
[2025-02-12] VITALS (17 sets, daily range): BP systolic 114–163; BP diastolic 58–98; PULSE 62–83; RESP 13–96; TEMP 36.2–37.4; O2SAT 92–100; BMI 24.7
[2025-02-12] MEDS: metroNIDAZOLE/NS 500 MG IVPB 500 MG/100 ML BAG 200 MG IV (05:34)
[2025-02-12 06:26] LABS: Basophils # (Auto) 0.0 Thou/mm3 (0.0-0.2); Basophils % (Auto) 0 % (0-2.5); Eosinophils # (Auto) 0.0 Thou/mm3 (0.0-0.5); Eosinophils % (Auto) 0 % (0-10); Hematocrit 37.9 % (36.0-46.0); Hemoglobin 12.7 g/dL (12.0-16.0); Immature Granulocytes Auto 0.05 Thou/mm3 (0.00-0.00); Lymphocytes # (Auto) 1.8 Thou/mm3 (1.0-4.8); Lymphocytes % (Auto) 13 % (10-50); Mean Corpuscular HGB Conc 33.5 g/dl (31.0-37.0); Mean Corpuscular Hemoglobin 26.9 pg (25.0-35.0); Mean Corpuscular Volume 80 fL (80-100); Monocytes # (Auto) 0.9 Thou/mm3 (0.0-0.8); Monocytes % (Auto) 7 % (0-12); Neutrophils # (Auto) 10.9 Thou/mm3 (1.8-7.7); Neutrophils % (Auto) 80 % (37-80); Nucleated Red Blood Cell # 0.00 Thou/mm3 (0.00-0.00); Nucleated Red Blood Cell % 0 /100 WBC (0); Platelet Count 130 Thou/mm3 (140-440); RDW Standard Deviation 40.5 fL (36.4-46.3); Red Blood Count 4.72 Miln/mm3 (4.00-5.20); White Blood Count 13.6 Thou/mm3 (3.6-11.0)
--- NOTE | 2025-02-12 06:40 | PC.NURSE ---
Patient c/o rash throughout body and itchiness, flagyl was administered prior to rash. Patient received first dose last night and did not develop rash. Called hospitalist Dr. Serra and notified of rash, MD will place order for Benadryl.
[2025-02-12 06:58] LABS: Alanine Aminotransferase 16 U/L (10-49); Albumin, Serum 3.8 gm/dL (3.4-4.8); Albumin/Globulin Ratio 1.7 (1.2-2.2); Alkaline Phosphatase 58 U/L (46-116); Anion Gap 9 (7-16); Aspartate Amino Transferase 17 U/L (0-34); BUN/Creatinine Ratio 10 Ratio (12-20); Bilirubin,Total 0.9 mg/dL (0.3-1.2); Blood Urea Nitrogen 6 mg/dL (9-23); Calcium 8.7 mg/dL (8.3-10.6); Calcium (Corrected) 8.9 mg/dL (8.5-10.1); Carbon Dioxide 24.5 mMol/L (20.0-31.0); Cardiac Risk Estimate 2.8 RATIO (3.7-5.6); Chloride 107 mMol/L (98-107); Cholesterol 181 mg/dL (132-200); Creatinine (Component) 0.6 mg/dL (0.6-1.3); Estimated Creatinine Clearance 59.6 mL/min (>60); Globulin 2.2 gm/dL (2.3-3.5); Glucose 99 mg/dL (74-106); HDL Cholesterol 65 mg/dL (40-60); LDL Cholesterol,Calculated 100 mg/dL (0-130); Magnesium 1.6 mg/dL (1.6-2.6); Osmolality,Calculated 277 (275-295); Phosphorous 2.9 mg/dL (2.4-5.1); Potassium 3.7 mMol/L (3.4-5.1); Sodium 140 mMol/L (136-145); Total Protein 6.0 gm/dL (5.7-8.2); Triglycerides 82 mg/dL (30-150); eGFR > 60 See Note
[2025-02-12 07:18] LABS: Glucose Estimated Average 123 mg/dL (80-131); Hemoglobin A1C 5.9 % Hgb (4.8-6.0)
--- NOTE | 2025-02-12 07:58 | PD.SURCONS ---
HPI Consult details Consult date: 02/12/25 Reason for consultation narrative: Abdominal pain with nausea and vomiting History of present illness: 69-year-old female with history of diabetes and hypertension presents with abdominal pain with nausea and vomiting. She denies having similar symptoms in the past. She denies fever, chills, discoloration of urine or stool or jaundice. Liver enzymes were normal. She had elevated WBC. Abdominal ultrasound and CT scan revealed gallstones with gallbladder wall thickening and edema, MRCP revealed CBD stone Review of Systems Constitutional Constitutional: Denies chills and Denies fever(s) Cardiovascular Cardiovascular: Denies chest pain Respiratory Respiratory: Denies cough Gastrointestinal Gastrointestinal: Reports abdominal pain, Reports nausea and Reports vomiting Genitourinary Genitourinary: Denies difficulty voiding Hematologic/Lymphatic Hematologic/Lymphatic: Denies easy bleeding and Denies easy bruising Past Medical History Surgical History OTHER SURGICAL HX: Hysterectomy, Social History SMOKING STATUS: Never smoker SUBSTANCE USE: does not use ALCOHOL: Never Meds Home Medications and Allergies Home Medications ?Medication ?Instructions ?Recorded ?Confirmed ?Type losartan 25 mg tablet 25 mg PO QDAY 02/11/25 02/11/25 History metformin 500 mg tablet 500 mg PO QDAY 02/11/25 02/11/25 History Allergies Allergy/AdvReac Type Severity Reaction Status Date / Time metronidazole Allergy Mild Rash Verified 02/12/25 07:17 aspirin (From [facility]) Allergy Verified 02/11/25 05:52 citric acid (From Allergy Verified 02/11/25 05:52 [place]) Penicillins Allergy Verified 02/11/25 05:52 sodium bicarbonate (From Allergy Verified 02/11/25 05:52 [place]) Exam Vital Signs Temp Pulse Resp BP Pulse Ox O2 Del Method 99.0 F 75 16 122/67 99 Room Air 02/12/25 07:51 02/12/25 07:51 02/12/25 07:51 02/12/25 07:51 02/12/25 07:51 02/12/25 07:51 Constitutional Constitutional: no acute distress Routine HEENT Exam Eye: Present PERRL (Anicteric sclera) Routine Abdominal Exam Abdominal: Present soft, normoactive bowel sounds and tenderness (Right upper quadrant tenderness to palpation with guarding, no rebound tenderness or peritonitis at this time); Absent distended Results Results: Laboratory Laboratory results: results reviewed Results: Imaging Imaging narrative: Abdominal ultrasound, CT scan of abdomen pelvis and MRCP images reviewed, radiologist interpretation noted Assessment & Plan Problem List (1) Choledocholithiasis with acute cholecystitis: Status: Acute Plan Keep n.p.o. with IV fluids and IV antibiotics. Patient will require ERCP to clear the CBD, once that is done I will schedule her for laparoscopic possible open cholecystectomy. Risks include but not limited to infection, bleeding, injury to bowel, liver, stomach, bile duct, retained stone, bile leak, abdominal sepsis and or abdominal abscess, need for further procedure and or operation discussed with the patient via environmental consultant. Benefits and alternatives explained to her, all her questions answered, she agreed and consented to proceed with the operation.
[2025-02-12] MEDS: cefTRIAXone 2 GM in SODIUM CHLORIDE 0.9% (Popper) 50 ML IV (09:33)
--- NOTE | 2025-02-12 09:54 | PD.IMCONS ---
HPI Data of Consult Requesting Physician: Noé Boothe DO Primary Care Provider: Physician No Primary/Family Consult Narrative History of present illness: CC: Abdominal pain HPI: Pt is a 69-year-old female with history of diabetes and hypertension with abdominal pain with nausea and vomiting. She denies having similar symptoms in the past. No fever, chills, discoloration of urine or stool or jaundice. Liver enzymes were normal. Abdominal ultrasound and CT scan showed gallstones with gallbladder wall thickening and edema, MRCP showed CBD stone. GI was called for ERCP. cc:: cc: Noé Boothe DO Review of Systems Review of Systems Narrative Review of Systems: 12 systems reviewed and all negative except positive pertinent symptoms as per history physical. Meds Home Medications and Allergies Home Medications ?Medication ?Instructions ?Recorded ?Confirmed ?Type losartan 25 mg tablet 25 mg PO QDAY 02/11/25 02/11/25 History metformin 500 mg tablet 500 mg PO QDAY 02/11/25 02/11/25 History Allergies Allergy/AdvReac Type Severity Reaction Status Date / Time metronidazole Allergy Mild Rash Verified 02/12/25 07:17 aspirin (From [place]) Allergy Verified 02/11/25 05:52 citric acid (From Allergy Verified 02/11/25 05:52 [place]) Penicillins Allergy Verified 02/11/25 05:52 sodium bicarbonate (From Allergy Verified 02/11/25 05:52 [place]) Exam Vital Signs Temp Pulse Resp BP Pulse Ox O2 Del Method 99.0 F 75 16 122/67 99 Room Air 02/12/25 07:51 02/12/25 07:51 02/12/25 07:51 02/12/25 07:51 02/12/25 07:51 02/12/25 07:51 Routine Abdominal Exam Comments: Abdominal exam benign except tenderness in epigastric and right upper quadrant, no rebound tenderness no sign of peritonitis none . Results Labs 02/12/25 06:00 02/12/25 06:00 Labs: Short CBC 02/12/25 Range/Units 06:00 WBC 13.6 H (3.6-11.0) Thou/mm3 Hgb 12.7 (12.0-16.0) g/dL Hct 37.9 (36.0-46.0) % Plt Count 130 L D (140-440) Thou/mm3 BMP 02/12/25 06:00 Sodium 140 Potassium 3.7 Chloride 107 Carbon Dioxide 24.5 BUN 6 L Creatinine 0.6 Glucose 99 D Calcium 8.7 Liver Function 02/12/25 Range/Units 06:00 Total Bilirubin 0.9 (0.3-1.2) mg/dL AST 17 (0-34) U/L ALT 16 (10-49) U/L Alkaline Phosphatase 58 D (46-116) U/L Albumin 3.8 D (3.4-4.8) gm/dL ABG Interpretation ABG results: 02/11/25 07:19 VBG pH 7.52 VBG pCO2 28 L VBG pO2 26 VBG Base Excess 1 Assessment and Plan Additional Assessment & Plan Additional Plan: Assessment: Cholelithiasis Acute calculus cholecystitis Choledocholithiasis Plan of care: Agree with antibiotics LR 250 Keep n.p.o. Will proceed with ERCP today The entire procedure and risks and benefits explained to the patient patient verbalized understanding we will proceed with procedure. Will follow the patient
[2025-02-12] MEDS: PIPER/TAZO 3.375 GM PREMIX 3.375 GM/50 ML BAG IV ×2 (11:38→18:32)
[2025-02-12] MEDS: RINGERS LACTATED 1000 ML 1,000 ML 250 ML IV ×2 (11:39→20:35)
--- NOTE | 2025-02-12 13:27 | ESPR_ITS ---
<Statement entered by Carlos Vitale MD - 02/12/25 14:14> I have reviewed the note and agree with the resident's assessment & plan with exceptions as below. I have personally reviewed labs, imaging, home meds/prior records, examined the patient, formulated and discussed management plan with the IM team. Porsha is a 69 y/o female with PMHx of previous hysterectomy and C section who comes in for evaluation of abdominal pain, was found to have multiples stones in common bile duct and diltation of CBD. GI was consulted, Dr. Potts who kindly agrees to perform ERCP on patient today. General Surgery was also consulted, Dr. Perez, who will discuss with patient for cholecystectomy after ERCP is performed. Will continue with analegsia, NPO and IV LR 250 cc/hr. Pt's etiology of cholecystitis likely related to stones, however pt does not appear to be clinically decompensated at this time. Repeat hematology and chemistry in AM, and follow up Blood cultures. Pt had rash develop after being given Flagyl, switched to IV Zosyn for abd infection and gave IV Benadryl 12.5 mg x1 #Acute calculus cholecystitis #Choledocholithiasis #Kax-etjdiam-iaptqxtye type 2 diabetes #Hypertension Carlos Vitale, PGY-2 Internal Medicine Documentation for date of: 02/12/25 Subjective Subjective Interval history: Patient seen at bedside. No acute overnight events. Patient's abdominal pain is controlled with analgesia, continuing n.p.o., IV lactated Ringer's. Patient reports to developing rash after being given Flagyl. Exam Vital Signs Temp Pulse Resp BP Pulse Ox O2 Del Method 98.3 F 79 18 114/60 95 Room Air 02/12/25 12:00 02/12/25 12:16 02/12/25 12:00 02/12/25 12:00 02/12/25 12:00 02/12/25 12:00 Narrative Exam GEN: Patient is Kinyarwanda-speaking, awake, alert. HEENT: NC/AT. Moist mucosa. PERRLA/EOMI. CARDIO: Heart RRR, no obvious murmurs, no JVD. PULM: No coughing or visible SOB. Lungs CTA B/L. GI: Abdomen soft, mildly tender to palpation epigastric region, no rebound or guarding. EXT:+Pedal pulses present B/L. NEURO: Oriented x3, Moves extremities x4, no focal neurologic deficits noted Objective Labs 02/13/25 04:50 02/13/25 04:50 Labs: Laboratory Results - last 24 hr 02/12/25 06:00 WBC 13.6 H RBC 4.72 Hgb 12.7 Hct 37.9 MCV 80 MCH 26.9 MCHC 33.5 RDW Std Deviation 40.5 Plt Count 130 L D Neut % (Auto) 80 Lymph % (Auto) 13 [place] % (Auto) 7 Eos % (Auto) 0 Baso % (Auto) 0 Neut # (Auto) 10.9 H Lymph # (Auto) 1.8 [place] # (Auto) 0.9 H Eos # (Auto) 0.0 Baso # (Auto) 0.0 Immature Gran # (Auto) 0.05 H Absolute Nucleated RBC 0.00 Immature Gran % 0 Nucleated RBC % 0 Sodium 140 Potassium 3.7 Chloride 107 Carbon Dioxide 24.5 Anion Gap 9 BUN 6 L Creatinine 0.6 Estim Creat Clear Calc 59.6 L eGFR > 60 BUN/Creatinine Ratio 10 L Glucose [address] Glu mg/dL 123 Hemoglobin A1c 5.9 Calculated Osmolality 277 Calcium 8.7 Corrected Calcium 8.9 Phosphorus 2.9 Magnesium 1.6 Total Bilirubin 0.9 AST 17 ALT 16 Alkaline Phosphatase 58 D Total Protein 6.0 Albumin 3.8 D Globulin 2.2 L Albumin/Globulin Ratio 1.7 Triglycerides 82 Cholesterol 181 LDL Cholesterol, Calc 100 HDL Cholesterol 65 H Cholesterol/HDL Ratio 2.8 L ABG Interpretation ABG results: 02/11/25 07:19 VBG pH 7.52 VBG pCO2 28 L VBG pO2 26 VBG Base Excess 1 Quality Measures Quality Measures none Advance care planning discussed with:: patient Assessment & Plan Assessment Current Active Medications: Generic Name Dose Route Start Last Admin Trade Name Freq PRN Reason Stop Dose Admin Acetaminophen 650 mg 02/11/25 19:46 Acetaminophen 325 Mg Tablet PO 03/13/25 19:45 Q6H PRN Pain 1-3 and/or Fever >100.1 Hydrocodone Bitart/Acetaminophen 1 tab 02/11/25 19:46 Hydrocodone/Apap 10/325 Tab PO 02/16/25 19:45 Q4H PRN PAIN SCALE 4-6 (Moderate Dextrose 25 ml 02/11/25 19:54 Dextrose 50%-Water Inj 50 Ml Syringe IV 03/13/25 19:53 Q15MIN PRN BG 50-70 responsive npo pt Dextrose 50 ml 02/11/25 19:54 Dextrose 50%-Water Inj 50 Ml Syringe IV 03/13/25 19:53 Q15MIN PRN BG <50 OR BG <70 & pt unresponsive Glucagon 1 mg 02/11/25 19:54 Glucagon Inj 1 Mg Vial IM Q15MIN PRN BG <70, and no IV access Heparin Sodium (Porcine) 5,000 unit 02/11/25 21:00 02/12/25 09:32 Heparin Sod Inj 5000 Unit/Ml Vial SC 02/25/25 20:59 Not Given Q12HR NADIYA Lactated Ringer's 1,000 mls @ 250 mls/hr 02/12/25 11:03 02/12/25 11:39 Lactated Ringers IV 03/14/25 11:02 250 mls/hr .Q4H NADIYA Administration Piperacillin/Tazobactam/Dextrose 3.375 gm in 50 mls @ 12.5 mls/hr 02/12/25 22:00 Zosyn IV 02/19/25 21:59 Q8HR [facility] Insulin Human Lispro 0 unit 02/12/25 12:00 02/12/25 11:28 Insulin Lispro (Admelog) 1 Unit/0.01 Ml Unit SC 03/14/25 11:59 Not Given Q6HR [facility] Protocol Morphine Sulfate 2 mg 02/11/25 19:46 Morphine Sulf Inj 10 Mg/Ml Vial IVP 02/16/25 19:45 Q4H PRN PAIN SCALE 7-10 (Severe Ondansetron HCl 4 mg 02/11/25 19:46 Ondansetron Inj 2 Mg/Ml Inj 2 Ml IVP 03/13/25 19:45 Q6H PRN NAUSEA OR VOMITING Protocol Plan 69-year-old female with past medical history of clv-spdsopi-sylbfenps type 2 diabetes, hypertension presenting to the ED on 02/11 with worsening abdominal pain will be admitted for acute calculus cholecystitis, cholelithiasis, and choledocholithiasis requiring ERCP. #Acute calculus cholecystitis #Choledocholithiasis #Cholelithiasis Patient presenting with 2 days of abdominal pain associated with nausea Gallbladder ultrasound is consistent with acute calculus cholecystitis, CT abdomen pelvis recommended HIDA to confirm the acute calculus cholecystitis, urinary bladder wall thickening noted. EKG read showed atrial fibrillation with possible right ventricular conduction delay but there is clear P waves noted on leads II and V1. MRCP showed acute calculus cholecystitis and an enlarged common hepatic common bile duct with sludge. ERCP: See ERCP report Plan: N.p.o. IV lactated Ringer's 250 cc an hour IV Zosyn 3.375 g every [address] Potts, gastroenterology performed ERCP today Consulted general surgery, Dr. Perez for possible need of cholecystectomy after ERCP Multimodal pain management Zofran as needed #Allergic reaction to metronidazole Patient had rash develop after being given Flagyl, switched to IV Zosyn for abd infection and gave IV Benadryl 12.5 mg x1 #?Cystitis Patient denies having any urinary tract infection symptoms, no dysuria increased frequency, lower back pain CT findings does show cystitis as noted above Plan: Zosyn 3.375 grams IV every 8 hours #Qug-vfjjtfl-yadqhsynv type 2 diabetes A1c 5.9, patient on metformin Plan: Sliding scale insulin Hypoglycemia protocol in place #Hypertension Chronic medical condition, patient on losartan 25 mg p.o. daily Plan: Restart home medication when appropriate Health Maintenance: Lines: PIV Diet: N.p.o. GI prophylaxis: Protonix 40 mg IV twice daily DVT prophylaxis: Heparin subcu Code: Full Case discussed with my attending Dr. Venegas, and senior resident, Dr. Winifred George MD PGY-1 Attending Provider Attestation/Addendum I have examined the patient, reviewed labs and imaging findings, discussed the case with the resident(s), and reviewed entered orders. I agree with the plan of care as outlined in this note. Dr. Rubi MD
--- NOTE | 2025-02-12 14:51 | PC.SS ---
Initial assessment: Patient is a 69 year old female admitted for acute calculous cholecystitis. Patient is Uzbek speaking. Patient is alert and oriented. Patient informs she is visiting family and comes from [place]. Per patient she is staying with her daughter Sara in town at [address] [facility]. Patient informs her daughter Sara should be contacted for any alternate medical decision making. Patient informs she has no local PCP and follows at the [facility] for care. Patient informs the discharge plan is to return home with her daughter and informs family is able to transport home. Community resource handout provided to the patient. D/c plan: Home Next of kin: Daughter, Shahrzad Ruiz [phone]
--- NOTE | 2025-02-12 14:56 | PC.SS ---
Rounding note: ERCP planned for today.
--- NOTE | 2025-02-12 17:00 | XR_ITS ---
Examination: ERCP 31 Spot fluoroscopic films of the abdomen Fluoroscopy Date and time: February 12, 2025, 2150 hours INDICATIONS: Onset of abdominal pain and history, MRCP study yesterday acute calculus cholecystitis, sludge versus small stones in the common bile duct FINDINGS: 31 spot fluoroscopic films of the abdomen demonstrating dilated intrahepatic biliary tree and enlarged common bile duct Balloon sweeping of the common bile duct Biliary stent in satisfactory position. Fluoroscopy 34 seconds radiation dose 3.83 mgy IMPRESSION: ERCP as above
[2025-02-12] MEDS: RINGERS LACTATED 1000 ML 1,000 ML 999 ML IV ×2 (18:29→19:37)
[2025-02-12] MEDS: INDOMETHACIN 50 MG SUPP 100 MG PR (18:58)
--- NOTE | 2025-02-12 19:26 | SUR.PHASEI ---
pt received to [facility]. awake and alert. denies pain and nausea. vss. breathing even and unlabored. report from nurse eloy and dr smith. dr wallace also at bedside evaluating.
--- NOTE | 2025-02-12 20:00 | SUR.PHASEI ---
report to nurse eugenie. vss. breathing even and unlabored. denies pain and nausea. transported to room via gurney. family waiting at bedside.
--- NOTE | 2025-02-12 20:13 | PC.NURSE ---
RECVD FROM [facility] S/P ERCP. FULLY AWAKE DENIES ANY C/O. VSS. MADE COMFORTABLE IN BED. CALL LIGHT WITHIN REACH. FAMILY AT BEDSIDE
[2025-02-12] MEDS: ONDANSETRON INJ 2 MG/ML INJ 2 ML 4 MG IVP (20:30)
[2025-02-12] MEDS: HEPARIN SOD INJ 5000 UNIT/ML VIAL SC (20:31)
[2025-02-13] VITALS (19 sets, daily range): BP systolic 100–152; BP diastolic 60–94; PULSE 52–98; RESP 12–93; TEMP 36.1–36.4; O2SAT 91–100; BMI 25.4
[2025-02-13] MEDS: PIPER/TAZO 3.375 GM PREMIX 3.375 GM/50 ML BAG IV ×4 (00:02→21:57)
[2025-02-13] MEDS: INSULIN LISPRO (AdmeLOG) 1 UNIT/0.01 ML UNIT SC ×3 (00:14→21:57)
[2025-02-13] MEDS: RINGERS LACTATED 1000 ML 1,000 ML 250 ML IV ×3 (00:37→09:20)
[2025-02-13 06:29] LABS: Basophils # (Auto) 0.0 Thou/mm3 (0.0-0.2); Basophils % (Auto) 0 % (0-2.5); Eosinophils # (Auto) 0.0 Thou/mm3 (0.0-0.5); Eosinophils % (Auto) 0 % (0-10); Hematocrit 37.2 % (36.0-46.0); Hemoglobin 12.5 g/dL (12.0-16.0); Immature Granulocytes Auto 0.03 Thou/mm3 (0.00-0.00); Lymphocytes # (Auto) 0.8 Thou/mm3 (1.0-4.8); Lymphocytes % (Auto) 9 % (10-50); Mean Corpuscular HGB Conc 33.6 g/dl (31.0-37.0); Mean Corpuscular Hemoglobin 27.4 pg (25.0-35.0); Mean Corpuscular Volume 81 fL (80-100); Monocytes # (Auto) 0.2 Thou/mm3 (0.0-0.8); Monocytes % (Auto) 2 % (0-12); Neutrophils # (Auto) 7.9 Thou/mm3 (1.8-7.7); Neutrophils % (Auto) 88 % (37-80); Nucleated Red Blood Cell # 0.00 Thou/mm3 (0.00-0.00); Nucleated Red Blood Cell % 0 /100 WBC (0); Platelet Count 139 Thou/mm3 (140-440); RDW Standard Deviation 40.7 fL (36.4-46.3); Red Blood Count 4.57 Miln/mm3 (4.00-5.20); White Blood Count 8.9 Thou/mm3 (3.6-11.0)
[2025-02-13 07:06] LABS: Alanine Aminotransferase 37 U/L (10-49); Albumin, Serum 3.4 gm/dL (3.4-4.8); Albumin/Globulin Ratio 1.5 (1.2-2.2); Alkaline Phosphatase 79 U/L (46-116); Anion Gap 11 (7-16); Aspartate Amino Transferase 56 U/L (0-34); BUN/Creatinine Ratio 12 Ratio (12-20); Bilirubin,Total 0.9 mg/dL (0.3-1.2); Blood Urea Nitrogen 7 mg/dL (9-23); Calcium 8.6 mg/dL (8.3-10.6); Calcium (Corrected) 9.1 mg/dL (8.5-10.1); Carbon Dioxide 27.3 mMol/L (20.0-31.0); Chloride 107 mMol/L (98-107); Creatinine (Component) 0.6 mg/dL (0.6-1.3); Estimated Creatinine Clearance 60.3 mL/min (>60); Globulin 2.3 gm/dL (2.3-3.5); Glucose 156 mg/dL (74-106); Magnesium 1.6 mg/dL (1.6-2.6); Osmolality,Calculated 289 (275-295); Phosphorous 1.8 mg/dL (2.4-5.1); Potassium 3.6 mMol/L (3.4-5.1); Sodium 145 mMol/L (136-145); Total Protein 5.7 gm/dL (5.7-8.2); eGFR > 60 See Note
--- NOTE | 2025-02-13 09:00 | ESPR_ITS ---
Documentation for date of: 02/13/25 Subjective Subjective Interval history: Pt examined at bedside today. No acute overnight events. Pt reports she is doing well. She tolerated the ERCP yesterday. She is agreeable for cholecystectomy. No other complaints at this time. Exam Vital Signs Temp Pulse Resp BP Pulse Ox O2 Del Method O2 Flow Rate 96.9 F 61 17 112/64 94 L Nasal Cannula 2 02/14/25 04:00 02/14/25 04:00 02/14/25 04:00 02/14/25 04:00 02/14/25 04:00 02/14/25 04:00 02/14/25 04:00 Narrative Exam GEN: Patient is Vincentian-speaking, awake, alert. HEENT: NC/AT. Moist mucosa. PERRLA/EOMI. CARDIO: Heart RRR, no obvious murmurs, no JVD. PULM: No coughing or visible SOB. Lungs CTA B/L. GI: Abdomen soft, mildly tender to palpation epigastric region, no rebound or guarding, some dressings present. EXT:+Pedal pulses present B/L. NEURO: Oriented x3, Moves extremities x4, no focal neurologic deficits noted Objective Labs 02/14/25 04:57 02/14/25 04:57 Labs: Laboratory Results - last 24 hr 02/14/25 04:57 WBC 11.4 H RBC 3.70 L Hgb 10.2 L D Hct 31.2 L MCV 84 MCH 27.6 MCHC 32.7 RDW Std Deviation 42.5 Plt Count 116 L Neut % (Auto) 87 H Lymph % (Auto) 8 L [place] % (Auto) 4 Eos % (Auto) 0 Baso % (Auto) 0 Neut # (Auto) 9.9 H Lymph # (Auto) 0.9 L [place] # (Auto) 0.5 Eos # (Auto) 0.0 Baso # (Auto) 0.0 Immature Gran # (Auto) 0.04 H Absolute Nucleated RBC 0.00 Immature Gran % 0 Nucleated RBC % 0 Sodium 145 Potassium 3.8 Chloride 108 H Carbon Dioxide 25.6 Anion Gap 11 BUN 8 L Creatinine 0.6 Estim Creat Clear Calc 59.5 L eGFR > 60 BUN/Creatinine Ratio 13 Glucose 109 H Calculated Osmolality 288 Calcium 8.0 L Corrected Calcium 8.7 Phosphorus 2.9 Magnesium 1.3 L Total Bilirubin 0.7 AST 57 H ALT 48 Alkaline Phosphatase 58 D Total Protein 5.1 L Albumin 3.1 L Globulin 2.0 L Albumin/Globulin Ratio 1.6 ABG Interpretation ABG results: 02/11/25 07:19 VBG pH 7.52 VBG pCO2 28 L VBG pO2 26 VBG Base Excess 1 Quality Measures Quality Measures none Advance care planning discussed with:: patient Assessment & Plan Assessment Current Active Medications: Generic Name Dose Route Start Last Admin Trade Name Freq PRN Reason Stop Dose Admin Acetaminophen 650 mg 02/11/25 19:46 Acetaminophen 325 Mg Tablet PO 03/13/25 19:45 Q6H PRN Pain 1-3 and/or Fever >100.1 Hydrocodone Bitart/Acetaminophen 1 tab 02/13/25 15:02 02/14/25 06:06 Hydrocodone/Apap 5/325 Tablet PO 02/18/25 15:01 1 tab Q6HR PRN Administration PAIN 4-6 Albuterol/Ipratropium 3 ml 02/13/25 12:02 Albuterol/Ipratropium (Duoneb) Rt Vi 3 Ml Nebu INH 03/15/25 12:01 Q4HRRT PRN WHEEZING Dextrose 25 ml 02/11/25 19:54 Dextrose 50%-Water Inj 50 Ml Syringe IV 03/13/25 19:53 Q15MIN PRN BG 50-70 responsive npo pt Dextrose 50 ml 02/11/25 19:54 Dextrose 50%-Water Inj 50 Ml Syringe IV 03/13/25 19:53 Q15MIN PRN BG <50 OR BG <70 & pt unresponsive Docusate Sodium 100 mg 02/13/25 21:00 02/14/25 07:28 Docusate Sod 100 Mg Capsule PO 03/15/25 20:59 Not Given BID NADIYA Protocol Glucagon 1 mg 02/11/25 19:54 Glucagon Inj 1 Mg Vial IM Q15MIN PRN BG <70, and no IV access Piperacillin/Tazobactam/Dextrose 3.375 gm in 50 mls @ 12.5 mls/hr 02/12/25 22:00 02/14/25 05:21 Zosyn IV 02/19/25 21:59 12.5 mls/hr Q8HR NADIYA Administration Lactated Ringer's 1,000 mls @ 75 mls/hr 02/13/25 10:43 02/14/25 05:21 Lactated Ringers IV 03/15/25 10:42 75 mls/hr .[id number] NADIYA Administration Insulin Human Lispro 0 unit 02/13/25 17:00 02/14/25 07:25 Insulin Lispro (Admelog) 1 Unit/0.01 Ml Unit SC 03/15/25 16:59 Not Given ACHS NADIYA Protocol Morphine Sulfate 2 mg 02/11/25 19:46 Morphine Sulf Inj 10 Mg/Ml Vial IVP 02/16/25 19:45 Q4H PRN PAIN SCALE 7-10 (Severe Ondansetron HCl 4 mg 02/11/25 19:46 02/12/25 20:30 Ondansetron Inj 2 Mg/Ml Inj 2 Ml IVP 03/13/25 19:45 4 mg Q6H PRN Administration NAUSEA OR VOMITING Protocol Pantoprazole Sodium 40 mg 02/13/25 09:00 02/13/25 21:57 Pantoprazole Inj 40 Mg Vial IVP 03/15/25 08:59 40 mg BID ANDIYA Administration Plan Assessment 69-year-old female with past medical history of ozv-pjzozni-anezxmfuq type 2 diabetes, hypertension presenting to the ED on 02/11 with worsening abdominal pain will be admitted for acute calculus cholecystitis, cholelithiasis, and choledocholithiasis requiring ERCP. #Acute calculus cholecystitis #Choledocholithiasis s/p ERCP post operative day one #Cholelithiasis Patient presenting with 2 days of abdominal pain associated with nausea Gallbladder ultrasound is consistent with acute calculus cholecystitis, CT abdomen pelvis recommended HIDA to confirm the acute calculus cholecystitis, urinary bladder wall thickening noted. EKG read showed atrial fibrillation with possible right ventricular conduction delay but there is clear P waves noted on leads II and V1. MRCP showed acute calculus cholecystitis and an enlarged common hepatic common bile duct with sludge. ERCP: Stent placed with 2 small stones removed Cholecystectomy today with Dr Perez Plan: N.p.o. IV LRs 150 cc an hour IV Zosyn 3.375 g every [address] Potts, gastroenterology performed ERCP today Consulted general surgery, Dr. Perez, appreciate recommendations Multimodal pain management Zofran as needed #Allergic reaction to metronidazole Patient had rash develop after being given Flagyl, switched to IV Zosyn for abd infection and gave IV Benadryl 12.5 mg x1 #?Cystitis Patient denies having any urinary tract infection symptoms, no dysuria increased frequency, lower back pain CT findings does show cystitis as noted above Plan: Zosyn 3.375 grams IV every 8 hours #Ugw-wirqyps-hxkrbtidk type 2 diabetes A1c 5.9, patient on metformin Plan: Sliding scale insulin Hypoglycemia protocol in place #Hypertension Chronic medical condition, patient on losartan 25 mg p.o. daily Plan: Restart home medication when appropriate Health Maintenance: Lines: PIV Diet: N.p.o. GI prophylaxis: Protonix 40 mg IV twice daily DVT prophylaxis: Heparin subcu Code: Full Case discussed with my attending Dr. Venegas, and senior resident, Dr. Winifred Vitale, PGY-2 Attending Provider Attestation/Addendum I have examined the patient, reviewed labs and imaging findings, discussed the case with the resident(s), and reviewed entered orders. I agree with the plan of care as outlined in this note, with these additional summaries/recommendations: Patient seen at bedside. No acute overnight events. Patient is status post ERCP yesterday with gastroenterology which revealed severe gastritis, duodenitis, esophagitis, choledocholithiasis with removal of stone by biliary sphincterotomy and balloon extraction and placement of 1 plastic stent. Continue pantoprazole for 3 months. Patient will need repeat EGD in 4 weeks and we will order H. pylori. Patient will need ERCP in 3 months as well. Continue pain management. Patient is currently n.p.o. and will go for cholecystectomy today with general surgery. Mild hypophosphatemia present and replacement given. Repeat level in AM. Continue insulin sliding scale for diabetes mellitus type 2. Target blood sugar 140-180. Home antihypertensives as tolerated. Patient updated on the plan and in agreement. Please see residents note for additional details and management. Dr. Rubi MD
--- NOTE | 2025-02-13 11:51 | ESPR_ITS ---
Documentation for date of: 02/13/25 Subjective Subjective Interval history: Patient was seen and examined, had ERCP last night tolerated procedure very well abdominal exam completely benign no new complaints. Exam Vital Signs Temp Pulse Resp BP Pulse Ox O2 Del Method O2 Flow Rate 97.1 F 75 20 100/60 91 L Room Air 2 02/13/25 07:55 02/13/25 11:50 02/13/25 11:50 02/13/25 07:55 02/13/25 07:55 02/13/25 07:55 02/12/25 19:31 Routine Abdominal Exam Comments: Abdominal exam completely benign with no tenderness or rebound tenderness. Objective Labs 02/13/25 04:50 02/13/25 04:50 Labs: Laboratory Results - last 24 hr 02/13/25 04:50 WBC 8.9 RBC 4.57 Hgb 12.5 Hct 37.2 MCV 81 MCH 27.4 MCHC 33.6 RDW Std Deviation 40.7 Plt Count 139 L Neut % (Auto) 88 H Lymph % (Auto) 9 L [place] % (Auto) 2 Eos % (Auto) 0 Baso % (Auto) 0 Neut # (Auto) 7.9 H Lymph # (Auto) 0.8 L [place] # (Auto) 0.2 Eos # (Auto) 0.0 Baso # (Auto) 0.0 Immature Gran # (Auto) 0.03 H Absolute Nucleated RBC 0.00 Immature Gran % 0 Nucleated RBC % 0 Sodium 145 Potassium 3.6 Chloride 107 Carbon Dioxide 27.3 Anion Gap 11 BUN 7 L Creatinine 0.6 Estim Creat Clear Calc 60.3 L eGFR > 60 BUN/Creatinine Ratio 12 Glucose 156 H D Calculated Osmolality 289 Calcium 8.6 Corrected Calcium 9.1 Phosphorus 1.8 L Magnesium 1.6 Total Bilirubin 0.9 AST 56 H ALT 37 Alkaline Phosphatase 79 D Total Protein 5.7 Albumin 3.4 Globulin 2.3 Albumin/Globulin Ratio 1.5 ABG Interpretation ABG results: 02/11/25 07:19 VBG pH 7.52 VBG pCO2 28 L VBG pO2 26 VBG Base Excess 1 Assessment & Plan A&P Narrative Assessment: Cholelithiasis Acute calculus cholecystitis Choledocholithiasis status post ERCP with stone removal and stent placement Patient has severe esophagitis and esophageal stricture and also gastritis Plan of care: Continue antibiotics Keep the patient on PPI twice daily for 3 months Check Helicobacter pylori Patient needs to follow-up with Dr. Potts in 2 to 4 weeks to get scheduled for repeat EGD and ERCP, for evaluation and possible dilation of GE junction and stent exchange/removal respectively. Call GI with any questions Time Spent With Patient Time: Total time spent is greater than 50% in coordination of care (as documented) at patient's floor/unit and/or counseling patient:
--- NOTE | 2025-02-13 13:54 | ESOP_ITS ---
Date of Procedure 02/13/25 Pre Op Diagnosis Cholelithiasis with acute cholecystitis Post Op Diagnosis Cholelithiasis with acute cholecystitis Hydrops of the gallbladder Procedure Laparoscopic cholecystectomy Findings Distended and thick-walled gallbladder with multiple gallstones. There are stones at the neck of the gallbladder causing hydrops of the gallbladder Procedure Description Patient was brought into the operating room in supine position. After administration of general endotracheal anesthesia abdomen was prepped and draped in standard surgical manner. A Veress needle was inserted through the umbilicus and pneumoperitoneum was obtained up to 15 mmHg. The Veress needle was then removed, a 5 mm infraumbilical incision was made and the 5mm trocar was inserted. Laparoscopic camera was placed. Under direct visualization a laparoscopic camera a 10 mm trocar was placed in subxiphoid and two 5 mm trocars placed in right upper quadrant. The gallbladder was identified and was noted to be moderately distended, tense and thick-walled. The gallbladder was aspirated, contents were clear fluid consistent with hydrops of the gallbladder. There were multiple stones near the neck of the gallbladder causing hydrops of the gallbladder. It was retracted cephalad and laterally. Dissection started near the infundibulum of gallbladder where cystic duct and gallbladder junction clearly identified. The cystic duct was circumferentially dissected off the peritoneum and surrounding inflammatory tissue. The critical view of safety was clearly demonstrated. Cystic duct was then divided between 2 endoclips proximally and one distally. The cystic artery was similarly dissected and divided. The gallbladder was then from the liver bed using electrocautery. The gallbladder was then placed inside an Endo Catch and removed from the abdomen utilizing subxiphoid trocar site. The area was copiously and thoroughly washed and irrigated, all the fluid was suctioned and the suction fluid returned clear. Hemostasis achieved using electrocautery, also topical hemostatic agent using snow Surgicel placed at the gallbladder fossa to further assure hemostasis. Endoclips noted be in place and intact without any bleeding or any leakage. Hemostasis was adequate and satisfactory. The subxiphoid trocar sites fascial defect was closed with 0 Vicryl using Endo Closure device. Instruments and trocars removed, pneumoperitoneum was evacuated and the incisions closed with 4-0 Monocryl in subcuticular fashion. Instrument needle and sponge counts were all reported to be correct X2. Patient tolerated the procedure well, was extubated, breathing spontaneously and without difficulty and was transferred to postanesthesia care in stable condition. Anesthesia GETA and local Pathology / specimen Other (Gallbladder and contents) Estimated Blood Loss 100 Condition Stable Disposition PACU Surgeon Ilia Perez MD Surgical Staff Operation Date: 02/13/25 13:30 Case Staff OPERATIONAL RISK CONSULTANT: Yan Orozco RNunix architect: [employer]
--- NOTE | 2025-02-13 13:55 | SUR.PHASEI ---
pt received from OR in recovery bay 3. pt asleep but responds to voice, breathing unlabored on oxymask 8l. v/s stable. pt dressing dermabond x4 cdi. report received from Howie Muir RN.
[2025-02-13] MEDS: ONDANSETRON INJ 2 MG/ML INJ 2 ML 4 MG IVP (14:34)
[2025-02-13] MEDS: fentaNYL CIT INJ 50 mCg/ML AMP 2ML 25 MCG IVP (14:36)
--- NOTE | 2025-02-13 14:53 | SUR.PHASEI ---
pt asleep but responds to voice, breathing unlabored on 2l nc. v/s stable. pt dressing to abd dermabond x4 cdi. report called to Loan LANZA. pt will be transferred to room at this time.
[2025-02-13] MEDS: RINGERS LACTATED 1000 ML 1,000 ML 75 ML IV (15:10)
[2025-02-13] MEDS: POTASSIUM PHOS 22.5 MMOL in SODIUM CHLORIDE 0.9% 500 ML 500 ML 82.778 MMOL IV (15:19)
--- NOTE | 2025-02-13 16:19 | PC.SS ---
Rounding: Pt pending Tressa
[2025-02-13] MEDS: DOCUSATE SOD 100 MG CAPSULE PO (21:56)
[2025-02-14] VITALS (9 sets, daily range): BP systolic 103–133; BP diastolic 58–71; PULSE 58–72; RESP 15–95; TEMP 36.1–36.4; O2SAT 91–95; BMI 25.4
[2025-02-14] MEDS: PIPER/TAZO 3.375 GM PREMIX 3.375 GM/50 ML BAG IV ×3 (05:21→23:47)
[2025-02-14] MEDS: RINGERS LACTATED 1000 ML 1,000 ML 75 ML IV ×2 (05:21→23:48)
[2025-02-14 06:02] LABS: Basophils # (Auto) 0.0 Thou/mm3 (0.0-0.2); Basophils % (Auto) 0 % (0-2.5); Eosinophils # (Auto) 0.0 Thou/mm3 (0.0-0.5); Eosinophils % (Auto) 0 % (0-10); Hematocrit 31.2 % (36.0-46.0); Hemoglobin 10.2 g/dL (12.0-16.0); Immature Granulocytes Auto 0.04 Thou/mm3 (0.00-0.00); Lymphocytes # (Auto) 0.9 Thou/mm3 (1.0-4.8); Lymphocytes % (Auto) 8 % (10-50); Mean Corpuscular HGB Conc 32.7 g/dl (31.0-37.0); Mean Corpuscular Hemoglobin 27.6 pg (25.0-35.0); Mean Corpuscular Volume 84 fL (80-100); Monocytes # (Auto) 0.5 Thou/mm3 (0.0-0.8); Monocytes % (Auto) 4 % (0-12); Neutrophils # (Auto) 9.9 Thou/mm3 (1.8-7.7); Neutrophils % (Auto) 87 % (37-80); Nucleated Red Blood Cell # 0.00 Thou/mm3 (0.00-0.00); Nucleated Red Blood Cell % 0 /100 WBC (0); Platelet Count 116 Thou/mm3 (140-440); RDW Standard Deviation 42.5 fL (36.4-46.3); Red Blood Count 3.70 Miln/mm3 (4.00-5.20); White Blood Count 11.4 Thou/mm3 (3.6-11.0)
[2025-02-14] MEDS: HYDROcodone/APAP 5/325 TABLET 1 TAB PO (06:06)
[2025-02-14 06:57] LABS: Anion Gap 11 (7-16); BUN/Creatinine Ratio 13 Ratio (12-20); Blood Urea Nitrogen 8 mg/dL (9-23); Calcium 8.0 mg/dL (8.3-10.6); Carbon Dioxide 25.6 mMol/L (20.0-31.0); Chloride 108 mMol/L (98-107); Creatinine (Component) 0.6 mg/dL (0.6-1.3); Estimated Creatinine Clearance 59.5 mL/min (>60); Glucose 109 mg/dL (74-106); Osmolality,Calculated 288 (275-295); Potassium 3.8 mMol/L (3.4-5.1); Sodium 145 mMol/L (136-145); eGFR > 60 See Note
[2025-02-14 06:58] LABS: Alanine Aminotransferase 48 U/L (10-49); Albumin, Serum 3.1 gm/dL (3.4-4.8); Albumin/Globulin Ratio 1.6 (1.2-2.2); Alkaline Phosphatase 58 U/L (46-116); Aspartate Amino Transferase 57 U/L (0-34); Bilirubin,Total 0.7 mg/dL (0.3-1.2); Calcium (Corrected) 8.7 mg/dL (8.5-10.1); Globulin 2.0 gm/dL (2.3-3.5); Magnesium 1.3 mg/dL (1.6-2.6); Phosphorous 2.9 mg/dL (2.4-5.1); Total Protein 5.1 gm/dL (5.7-8.2)
--- NOTE | 2025-02-14 08:34 | PC.SS ---
Addendum entered by Joya Batres 02/14/25 14:42: rounding note: Patient will d/c today on oral antibiotics. No further d/c needs. Original Note: Follow up note: SS reviewed financial counseling notes which indicated that patient is a true self pay. The manuel application was provided to patient's son, Rubin. Rubin states patient is staying with his sister, Adelaida @ [phone]. Any discharge medications will be out of pocket.
[2025-02-14] MEDS: DOCUSATE SOD 100 MG CAPSULE PO (09:52)
--- NOTE | 2025-02-14 09:55 | PD.RESDS ---
Planned Discharge Date 02/14/25 DS: Providers Provider Date of admission: 02/11/25 19:46 Primary care physician: Physician No Primary/Family Admitting Provider: Noé Boothe DO Attending Provider on Admission: Hosea Venegas MD Consults: 02/11/25 18:33 Consult to Gastroenterology Stat Comment: Cholecystitis with CBD sludge/stones Consulting Provider: Carlos Castro 02/11/25 19:52 Consult to General Surgery Routine Comment: Acute calculous cholecystitis Consulting Provider: Ilia Perez Attending Provider on DC: Hosea Venegas MD Discharging Provider: Hosea Venegas MD Hospital Course Hospital Course Hospital course: [] IMAGE FINDINGS: [] PATIENT INSTRUCTIONS: Follow-up with PCP within 1-2 weeks of discharge. [] Return to Emergency Room if symptoms persist, worsen, or new symptoms develop. Continue taking medications as prescribed below. ADMISSION DIAGNOSES: [] Case was discussed with attending physician. Virgil Wilkins DO PGY II This document was transcribed using voice recognition technology. Minor inaccuracies may be present. Time Spent with Patient Time attestation: Total time spent providing and/or coordinating discharge services: Exam Vital Signs Temp Pulse Resp BP Pulse Ox O2 Del Method O2 Flow Rate 97.3 F 63 15 132/71 H 95 Room Air 2 02/14/25 08:00 02/14/25 08:00 02/14/25 08:00 02/14/25 08:00 02/14/25 08:00 02/14/25 08:00 02/14/25 04:00 Discharge Plan Problem List Was Problem List Reviewed/Reconciled?: Yes Plan Care Plan Goals: Follow-up with PCP within 1-2 weeks of discharge. You need to follow-up with Dr. Potts in 2 to 4 weeks to get scheduled for repeat EGD and ERCP, for evaluation and possible dilation of GE junction and stent exchange/removal respectively. Continue taking PROTONIX 40 mg twice daily for 3 more months. Take NORCO up to 4 times a day as needed for severe pain. Continue taking medications as prescribed below. Return to Emergency Room if symptoms persist, worsen, or new symptoms develop. Prescriptions/Referrals Prescriptions/Med Rec: New pantoprazole [Protonix] 40 mg tablet,delayed release (DR/EC) 40 mg PO BID 90 Days Qty: 180 0RF hydrocodone-acetaminophen 5-325 mg Tablet 1 tab PO Q6HR MDD 4 pills within 24 hours PRN (Reason: PAIN 4-6) Qty: 10 0RF Continued losartan 25 mg tablet 25 mg PO QDAY metformin 500 mg tablet 500 mg PO QDAY Referrals: No Primary/Family,Physician [Primary Care Provider] - Carlos Castro MD [Physician] - Patient/Caregiver Discharge Instructions Education Materials: ERCP, Preventing Surgical Site Infections Print Language: Maltese
[2025-02-14] MEDS: Magnesium Sulfate 4 GM Ivpb 4 GM/50 ML BAG IV (11:43)
--- NOTE | 2025-02-14 13:43 | PD.SURPROG ---
Documentation for date of: 02/14/25 Subjective Subjective Narrative: Patient is seen and examined. Her pain is improving. She is tolerating diet Exam Vital Signs Temp Pulse Resp BP Pulse Ox O2 Del Method O2 Flow Rate 97.3 F 58 L 16 132/65 H 94 L Room Air 2 02/14/25 12:00 02/14/25 12:00 02/14/25 12:00 02/14/25 12:00 02/14/25 12:00 02/14/25 12:00 02/14/25 04:00 Constitutional Constitutional: no acute distress Routine Abdominal Exam Comments: Abdomen is soft and nondistended. Incisions are clean, dry and intact. She has minimal epigastric incisional tenderness Assessment & Plan Assessment Additional comments: Postop day #1 status post laparoscopic cholecystectomy Plan May discharge home on oral antibiotics for 1 week PROCEDURES: Procedures Laparoscopic cholecystectomy
--- NOTE | 2025-02-14 15:36 | ESPR_ITS ---
<Statement entered by Virgil Wilkins MD - 02/14/25 17:20> In summary, 68-year-old female with PMHx of T2DM, HTN, manage for acute calculus cholecystitis and choledocholithiasis. Completed uncomplicated ERCP removal of 2 small stones and stent placement. Postop day 2 lap tess with general surgery. Overall symptoms of resolved. Was tolerating oral intake, having regular bowel movements. General surgery recommended discharge on PROTONIX for 3 months and pain control. Case was discussed with attending physician. Virgil Wilkins DO PGY II This document was transcribed using voice recognition technology. Minor inaccuracies may be present. Documentation for date of: 02/14/25 Subjective Subjective Interval history: Pt examined at bedside today. No acute overnight events. Pt reports she is doing well. Pt is slowly advancing diet, had milk and cereal in the morning, but had significant indigestion/dysphagia/abdominal pain at lunch. She feels her stomach pulled inside her abdomen to one side when she has anything to eat. Admits to passing gas and stool. Ambulates by herslef. Denies any complications from laproscopic cholecystectomy yesterday. Exam Vital Signs Temp Pulse Resp BP Pulse Ox O2 Del Method O2 Flow Rate 97.3 F 58 L 16 132/65 H 94 L Room Air 2 02/14/25 12:00 02/14/25 12:00 02/14/25 12:00 02/14/25 12:00 02/14/25 12:00 02/14/25 12:00 02/14/25 04:00 Narrative Exam GEN: Patient is Zambian-speaking, awake, alert. HEENT: NC/AT. Moist mucosa. PERRLA/EOMI. CARDIO: Heart RRR, no obvious murmurs, no JVD. PULM: No coughing or visible SOB. Lungs CTA B/L. GI: Abdomen soft, distended, and tympanic to percussion. no rebound or guarding, some dressings present. BS present throughout. EXT:+Pedal pulses present B/L. NEURO: Oriented x3, Moves extremities x4, no focal neurologic deficits noted Objective Labs 02/15/25 04:45 02/15/25 04:45 Labs: Laboratory Results - last 24 hr 02/14/25 04:57 WBC 11.4 H RBC 3.70 L Hgb 10.2 L D Hct 31.2 L MCV 84 MCH 27.6 MCHC 32.7 RDW Std Deviation 42.5 Plt Count 116 L Neut % (Auto) 87 H Lymph % (Auto) 8 L Simpson % (Auto) 4 Eos % (Auto) 0 Baso % (Auto) 0 Neut # (Auto) 9.9 H Lymph # (Auto) 0.9 L Simpson # (Auto) 0.5 Eos # (Auto) 0.0 Baso # (Auto) 0.0 Immature Gran # (Auto) 0.04 H Absolute Nucleated RBC 0.00 Immature Gran % 0 Nucleated RBC % 0 Sodium 145 Potassium 3.8 Chloride 108 H Carbon Dioxide 25.6 Anion Gap 11 BUN 8 L Creatinine 0.6 Estim Creat Clear Calc 59.5 L eGFR > 60 BUN/Creatinine Ratio 13 Glucose 109 H Calculated Osmolality 288 Calcium 8.0 L Corrected Calcium 8.7 Phosphorus 2.9 Magnesium 1.3 L Total Bilirubin 0.7 AST 57 H ALT 48 Alkaline Phosphatase 58 D Total Protein 5.1 L Albumin 3.1 L Globulin 2.0 L Albumin/Globulin Ratio 1.6 ABG Interpretation ABG results: 02/11/25 07:19 VBG pH 7.52 VBG pCO2 28 L VBG pO2 26 VBG Base Excess 1 Quality Measures Quality Measures none Advance care planning discussed with:: patient Assessment & Plan Assessment Current Active Medications: Generic Name Dose Route Start Last Admin Trade Name Freq PRN Reason Stop Dose Admin Acetaminophen 650 mg 02/11/25 19:46 Acetaminophen 325 Mg Tablet PO 03/13/25 19:45 Q6H PRN Pain 1-3 and/or Fever >100.1 Hydrocodone Bitart/Acetaminophen 1 tab 02/13/25 15:02 02/14/25 06:06 Hydrocodone/Apap 5/325 Tablet PO 02/18/25 15:01 1 tab Q6HR PRN Administration PAIN 4-6 Albuterol/Ipratropium 3 ml 02/13/25 12:02 Albuterol/Ipratropium (Duoneb) Rt Vi 3 Ml Nebu INH 03/15/25 12:01 Q4HRRT PRN WHEEZING Dextrose 25 ml 02/11/25 19:54 Dextrose 50%-Water Inj 50 Ml Syringe IV 03/13/25 19:53 Q15MIN PRN BG 50-70 responsive npo pt Dextrose 50 ml 02/11/25 19:54 Dextrose 50%-Water Inj 50 Ml Syringe IV 03/13/25 19:53 Q15MIN PRN BG <50 OR BG <70 & pt unresponsive Docusate Sodium 100 mg 02/13/25 21:00 02/14/25 09:52 Docusate Sod 100 Mg Capsule PO 03/15/25 20:59 100 mg BID NADIYA Administration Protocol Glucagon 1 mg 02/11/25 19:54 Glucagon Inj 1 Mg Vial IM Q15MIN PRN BG <70, and no IV access Piperacillin/Tazobactam/Dextrose 3.375 gm in 50 mls @ 12.5 mls/hr 02/12/25 22:00 02/14/25 13:07 Zosyn IV 02/19/25 21:59 12.5 mls/hr Q8HR NADIYA Administration Lactated Ringer's 1,000 mls @ 75 mls/hr 02/13/25 10:43 02/14/25 05:21 Lactated Ringers IV 03/15/25 10:42 75 mls/hr .[id number] NADIYA Administration Insulin Human Lispro 0 unit 02/13/25 17:00 02/14/25 11:42 Insulin Lispro (Admelog) 1 Unit/0.01 Ml Unit SC 03/15/25 16:59 Not Given ACHS NADIYA Protocol Morphine Sulfate 2 mg 02/11/25 19:46 Morphine Sulf Inj 10 Mg/Ml Vial IVP 02/16/25 19:45 Q4H PRN PAIN SCALE 7-10 (Severe Ondansetron HCl 4 mg 02/11/25 19:46 02/12/25 20:30 Ondansetron Inj 2 Mg/Ml Inj 2 Ml IVP 03/13/25 19:45 4 mg Q6H PRN Administration NAUSEA OR VOMITING Protocol Pantoprazole Sodium 40 mg 02/13/25 09:00 02/14/25 09:48 Pantoprazole Inj 40 Mg Vial IVP 03/15/25 08:59 40 mg BID NADIYA Administration Plan Assessment 69-year-old female with past medical history of dwk-[id number]-pcdenydol type 2 diabetes, hypertension presenting to the ED on 02/11 with worsening abdominal pain will be admitted for acute calculus cholecystitis, cholelithiasis, and choledocholithiasis requiring ERCP. #Acute calculus cholecystitis #Choledocholithiasis s/p ERCP #Cholelithiasis s/p cholecystectomy POD 1 Patient presenting with 2 days of abdominal pain associated with nausea Gallbladder ultrasound is consistent with acute calculus cholecystitis, CT abdomen pelvis recommended HIDA to confirm the acute calculus cholecystitis, urinary bladder wall thickening noted. EKG read showed atrial fibrillation with possible right ventricular conduction delay but there is clear P waves noted on leads II and V1. MRCP showed acute calculus cholecystitis and an enlarged common hepatic common bile duct with sludge. ERCP (02/12): Stent placed with 2 small stones removed Cholecystectomy (02/13) with Dr Perez Plan: Advancing diet, currently low fat IV LRs 150 cc an hour IV Zosyn 3.375 g every 8 hours (02/12 to 02/19) Pt Surgery recs, Pt may be d/c on 1wk course of Augmentin and Protonix for 3mo follow up on H pylori test results Multimodal pain management Zofran as needed Protonix for 3mo #Allergic reaction to metronidazole Patient had rash develop after being given Flagyl, switched to IV Zosyn for abd infection and gave IV Benadryl 12.5 mg x1 #?Cystitis Patient denies having any urinary tract infection symptoms, no dysuria increased frequency, lower back pain CT findings does show cystitis as noted above Plan: Zosyn 3.375 grams IV every 8 hours #Avu-jtlsgsj-uvcipuagi type 2 diabetes A1c 5.9, patient on metformin Plan: Sliding scale insulin Hypoglycemia protocol in place #Hypertension Chronic medical condition, patient on losartan 25 mg p.o. daily Plan: Restart home medication when appropriate Health Maintenance: Lines: PIV Diet: N.p.o. GI prophylaxis: Protonix 40 mg IV twice daily DVT prophylaxis: Heparin subcu Code: Full Case discussed with my attending Dr. Venegas, and senior resident, Dr. Winifred Vitale, PGY-2 Attending Provider Attestation/Addendum I have examined the patient, reviewed labs and imaging findings, discussed the case with the resident(s), and reviewed entered orders. I agree with the plan of care as outlined in this note, with these additional summaries/recommendations: Patient seen at bedside. No acute overnight events. She is postoperative day #1 after laparoscopic cholecystectomy. Diet was advanced to low-fat diet for lunch although patient does not appear to have fully tolerated. She endorsed increased right upper quadrant discomfort/pain. For these reasons patient will remain hospitalized for current pain management and advancement of diet. Continue IV antibiotic per gastroenterology recommendations and when patient is medically cleared for discharge we will send an additional 1 week course of oral antibiotics. Continue insulin sliding scale for diabetes 2 with Accu-Cheks. Target blood sugar of 140-180 while hospitalized. Resume home antihypertensives as needed. Patient was found to also have significant gastritis/esophagitis and started on PPI. H. pylori pending. Anticipate discharge in the next [address] Rubi MD
[2025-02-15] VITALS: BP 138/66; PULSE 69; RESP 18; TEMP 36.4; O2SAT 91
[2025-02-15 04:00] VITALS: BP 145/74; PULSE 67; RESP 18; TEMP 36.2; O2SAT 90
[2025-02-15 05:35] VITALS: BMI 25.2
[2025-02-15] MEDS: PIPER/TAZO 3.375 GM PREMIX 3.375 GM/50 ML BAG IV (06:26)
[2025-02-15 06:31] LABS: Basophils # (Auto) 0.0 Thou/mm3 (0.0-0.2); Basophils % (Auto) 0 % (0-2.5); Eosinophils # (Auto) 0.0 Thou/mm3 (0.0-0.5); Eosinophils % (Auto) 1 % (0-10); Hematocrit 37.5 % (36.0-46.0); Hemoglobin 12.4 g/dL (12.0-16.0); Immature Granulocytes Auto 0.08 Thou/mm3 (0.00-0.00); Lymphocytes # (Auto) 2.3 Thou/mm3 (1.0-4.8); Lymphocytes % (Auto) 27 % (10-50); Mean Corpuscular HGB Conc 33.1 g/dl (31.0-37.0); Mean Corpuscular Hemoglobin 27.3 pg (25.0-35.0); Mean Corpuscular Volume 82 fL (80-100); Monocytes # (Auto) 0.6 Thou/mm3 (0.0-0.8); Monocytes % (Auto) 7 % (0-12); Neutrophils # (Auto) 5.7 Thou/mm3 (1.8-7.7); Neutrophils % (Auto) 65 % (37-80); Nucleated Red Blood Cell # 0.00 Thou/mm3 (0.00-0.00); Nucleated Red Blood Cell % 0 /100 WBC (0); Platelet Count 149 Thou/mm3 (140-440); RDW Standard Deviation 42.1 fL (36.4-46.3); Red Blood Count 4.55 Miln/mm3 (4.00-5.20); White Blood Count 8.7 Thou/mm3 (3.6-11.0)
[2025-02-15 07:11] LABS: Alanine Aminotransferase 46 U/L (10-49); Albumin, Serum 3.9 gm/dL (3.4-4.8); Albumin/Globulin Ratio 1.6 (1.2-2.2); Alkaline Phosphatase 62 U/L (46-116); Anion Gap 11 (7-16); Aspartate Amino Transferase 41 U/L (0-34); BUN/Creatinine Ratio 12 Ratio (12-20); Bilirubin,Total 0.7 mg/dL (0.3-1.2); Blood Urea Nitrogen 7 mg/dL (9-23); Calcium 8.4 mg/dL (8.3-10.6); Calcium (Corrected) 8.5 mg/dL (8.5-10.1); Carbon Dioxide 27.8 mMol/L (20.0-31.0); Chloride 107 mMol/L (98-107); Creatinine (Component) 0.6 mg/dL (0.6-1.3); Estimated Creatinine Clearance 59.5 mL/min (>60); Globulin 2.4 gm/dL (2.3-3.5); Glucose 84 mg/dL (74-106); Magnesium 2.2 mg/dL (1.6-2.6); Osmolality,Calculated 287 (275-295); Phosphorous 1.8 mg/dL (2.4-5.1); Potassium 3.6 mMol/L (3.4-5.1); Sodium 146 mMol/L (136-145); Total Protein 6.3 gm/dL (5.7-8.2); eGFR > 60 See Note
[2025-02-15 08:00] VITALS: BP 160/77; PULSE 71; RESP 18; TEMP 36.1; O2SAT 92
[2025-02-15 08:53] VITALS: PULSE 69; RESP 18; RESP 92; O2SAT 92
[2025-02-15] MEDS: NAPH,KPH MBDB 1 PACKET (1.5 GM) 2 PACKET PO (09:54)
--- NOTE | 2025-02-15 12:16 | PC.SS ---
When ready for d/c, pt will D/c plan: Home Next of kin: Daughter, Shahrzad Ruiz [phone] to contact to pickup pt..
--- NOTE | 2025-02-15 21:41 | ESDS_ITS ---
Planned Discharge Date 02/15/25 DS: Providers Provider Date of admission: 02/11/25 19:46 Primary care physician: Physician No Primary/Family Admitting Provider: Noé Boothe DO Attending Provider on Admission: Hosea Venegas MD Consults: 02/11/25 18:33 Consult to Gastroenterology Stat Comment: Cholecystitis with CBD sludge/stones Consulting Provider: Carlos Castro 02/11/25 19:52 Consult to General Surgery Routine Comment: Acute calculous cholecystitis Consulting Provider: Ilia Perez Attending Provider on DC: Shira Noonan DO PGY 1 Discharging Provider: Shira Noonan DO PGY 1 DS: Diagnosis Problem List Completed Was Problem List Reviewed/Reconciled?: Yes Hospital Course Hospital Course Hospital course: Porsha Arizmendi is a 70-year-old female past medical history of ylv-ixihbes-kobzwfphi type 2 diabetes, hypertension who presented to the ED on 02/11 with worsening abdominal pain will be admitted for acute calculus cholecystitis, cholelithiasis, and choledocholithiasis requiring ERCP. imaging revealed acute calculus cholecystitis as well as a dilated common biliary duct. The day after admission, ERCP removed 2 stones from CBD via sphincterotomy and balloon extraction of biliary sludge. This was followed by laparoscopic cholecystectomy on 02/13. Post surgery, patient recovered well with regain of bowel function and gradual relief from abdominal pain. At the time of discharge, patient is medically stable and safe to return to her previous conditions of life. IMAGE FINDINGS: * MRCP: Gallstones There is significant edema surrounding the gallbladder. Common hepatic common bile duct is enlarged, 7 mm Small stones in the 2 mm range versus sludge in the common bile duct * Fatty infiltration throughout the liver. No focal liver or splenic lesions. Gallbladder is abnormal, wall thickening and pericholecystic inflammatory change. Abnormal thickening of urinary bladder wall up to 4 mm. Absent uterus. Severe osteopenia. * US: Small gallstones. Gallbladder wall is thickened 0.8 cm and there does appear to be trace edema. Common bile duct 0.6 cm PATIENT INSTRUCTIONS: * Follow-up with PCP within 1-2 weeks of discharge. * You need to follow-up with Dr. Potts in 2 to 4 weeks to get scheduled for repeat EGD and ERCP, for evaluation and possible dilation of GE junction and stent exchange/removal respectively. * Follow up with general surgery, Dr. Perez within one to two weeks * Follow up with your H pylori test with your PCP * Continue taking PROTONIX 40 mg twice daily for 3 more months. * Take NORCO up to 4 times a day as needed for severe pain. * Continue taking medications as prescribed below. * Return to Emergency Room if symptoms persist, worsen, or new symptoms develop. ADMISSION DIAGNOSES: #Acute calculus cholecystitis #Choledocholithiasis s/p ERCP #Cholelithiasis s/p cholecystectomy POD 1 #Allergic reaction to metronidazole #?Cystitis #Oqp-qgdutgp-uxbmridmn type 2 diabetes #Hypertension Case was discussed with attending physician, Dr. Venegas, and senior resident Dr Vitale. Shira Noonan, PGY I Time Spent with Patient Time attestation: Total time spent providing and/or coordinating discharge services: Time spent: Greater than 30 minutes Exam Vital Signs Temp Pulse Resp BP Pulse Ox O2 Del Method O2 Flow Rate 96.9 F 69 18 160/77 H 92 L Room Air 2 02/15/25 08:00 02/15/25 08:53 02/15/25 08:53 02/15/25 08:00 02/15/25 08:53 02/15/25 08:00 02/14/25 04:00 Narrative Exam GEN: Patient is Egyptian-speaking, awake, alert. HEENT: NC/AT. Moist mucosa. PERRLA/EOMI. CARDIO: Heart RRR, no obvious murmurs, no JVD. PULM: No coughing or visible SOB. Lungs CTA B/L. GI: Abdomen soft, distended, and tympanic to percussion. no rebound or guarding, some dressings present. BS present throughout. EXT:+Pedal pulses present B/L. NEURO: Oriented x3, Moves extremities x4, no focal neurologic deficits noted Discharge Plan Plan Patient Disposition: HOME (Self Care) Patient condition on transfer: Stable Care Plan Goals: * Follow-up with PCP within 1-2 weeks of discharge. * You need to follow-up with Dr. Potts in 2 to 4 weeks to get scheduled for repeat EGD and ERCP, for evaluation and possible dilation of GE junction and stent exchange/removal respectively. * Follow up with general surgery, Dr. Perez within one to two weeks * Follow up with your H pylori test with your PCP * Continue taking PROTONIX 40 mg twice daily for 3 more months. * Take NORCO up to 4 times a day as needed for severe pain. * Continue taking medications as prescribed below. * Return to Emergency Room if symptoms persist, worsen, or new symptoms develop. Realice thu elizabeth de seguimiento con davis m?dico de cabecera en un plazo de 1 a 2 semanas tras el bill.? Debe realizar thu elizabeth de seguimiento con el Dr. Potts en un plazo de 2 a 4 semanas para programar thu nueva EGD y thu CPRE para la evaluaci?n y posible dilataci?n de la uni?n gastroesof?gica y el camb io/extracci?n del stent, respectivamente.? Realice thu elizabeth de seguimiento con el Dr. Perez, cirujano general, en un plazo de thu a dos semanas.? Realice thu elizabeth de seguimiento con davis m?dico de cabecera para la prueba de H. pylori.? Contin?e tomando PROTONIX 40 mg dos veces al d?a luca 3 meses m?s.? [place] NORCO hasta 4 veces al d?a seg?n sea necesario para el dolor intenso.? Contin?e tomando los medicamentos seg?n lo prescrito a continuaci?n.? Regrese a urgencias si los s?ntomas persisten, empeoran o aparecen nuevos. Prescriptions/Referrals Prescriptions/Med Rec: New pantoprazole [Protonix] 40 mg tablet,delayed release (DR/EC) 40 mg PO BID 90 Days Qty: 180 0RF hydrocodone-acetaminophen 5-325 mg Tablet 1 tab PO Q6HR MDD 4 pills within 24 hours PRN (Reason: PAIN 4-6) Qty: 10 0RF ciprofloxacin HCl [Cipro] 500 mg tablet 500 mg PO BID Qty: 14 0RF Continued losartan 25 mg tablet 25 mg PO QDAY metformin 500 mg tablet 500 mg PO QDAY Referrals: No Primary/Family,Physician [Primary Care Provider] - Carlos Castro MD [Physician] - Patient/Caregiver Discharge Instructions Discharge Activity: activity as tolerated Education Materials: What Are Gallstones, Cholecystectomy, ERCP, Preventing Surgical Site Infections Print Language: Egyptian Activity Restrictions/Additional Instructions: May shower in 24 hours. Avoid lifting, straining, pulling or pushing for 4 weeks. May take over the counter laxatives if no bowel movement in 2 days. Follow up with Dr. Perez in 2 weeks, call [phone] for an appointment. Continue low-fat diet for a week then advance diet as tolerated. Stand Alone Forms: [employer] Award Info., Patient Portal Info Letter Discharge Order Discharge Orders: Discharge (Routine); Ordered 02/15/25 Ordered By: Carlos Vitale Quality Discharge Quality Measures VTE prophylaxis MD Attestestation MD Attestation I have examined the patient, reviewed labs and imaging findings, discussed the case with the resident(s), and reviewed entered orders. I agree with the plan of care as outlined in this note. Time Spent: [address] Rubi MD
[2025-02-19 06:31] LABS: Helicobacter pylori Ag, Stool* NOT DETECTED (NOT DETECTED)
== END 2025-02-15 11:07 | disposition home or self-care (01) | DRG 418 ==
LOC: SERX 19:14 → SERHOLD 20:00 → S3NX 20:54
PROVIDERS: Internal Medicine Gastroenterology; Nurse Practitioner Family; Surgery; Admitting Provider Student in an Organized Health Care Education/Training Program; Emergency Provider Emergency Medicine; Visit Provider Student in an Organized Health Care Education/Training Program
PROC: 0FC98ZZ Extirpation of Matter from Common Bile Duct, Via Natural or Artificial Opening Endoscopic (ICD-10-PCS; CPT 43260; principal; 2025-02-12 17:15)
PROC: 0FC98ZZ Extirpation of Matter from Common Bile Duct, Via Natural or Artificial Opening Endoscopic (ICD-10-PCS; CPT 43239; 2025-02-12 17:15)
PROC: 0FT44ZZ Resection of Gallbladder, Percutaneous Endoscopic Approach (ICD-10-PCS; CPT 47562; principal; 2025-02-13 13:15)
DX: K80.62 Calculus of gallbladder and bile duct with acute cholecystitis without obstruction (principal); K82.1 Hydrops of gallbladder; I10 Essential (primary) hypertension; I48.91 Unspecified atrial fibrillation; N30.90 Cystitis, unspecified without hematuria; E11.9 Type 2 diabetes mellitus without complications; E83.39 Other disorders of phosphorus metabolism; K29.70 Gastritis, unspecified, without bleeding; R13.10 Dysphagia, unspecified; K20.90 Esophagitis, unspecified without bleeding; T37.8X5A Adverse effect of other specified systemic anti-infectives and antiparasitics, initial encounter; Z79.4 Long term (current) use of insulin; K76.0 Fatty (change of) liver, not elsewhere classified; Z79.84 Long term (current) use of oral hypoglycemic drugs; Z79.899 Other long term (current) drug therapy; Z90.710 Acquired absence of both cervix and uterus
CPT/HCPCS: 36415; 74176; 74330; 76705; 80053; 80061; 81001; 82010; 82803; 83036; 83690; 83735; 84100; 84484; 85025; 87040; 87338; 93005; 93225; 94762; 96361; 96365; 96366; 96375; 96376; A4217; A4649; J0131; J0171; J0694; J0696; J1100; J1200; J1644; J1815; J1956; J2270; J2405; J2470; J2543; J2704; J3010; J3475; J3490; J7030; J7050; J7120; J7999; Q0162; S8037; 74181; A9270; J1805; J1836